=== PATIENT | female | born 1960 ===

== ENCOUNTER 2025-01-14 13:35 | Outpatient (REF) | payer MEDICARE, MEDICAID, SELFPAY ==
[2025-01-14 13:39] LABS: MANUAL DIFF FLAG NO
[2025-01-14 13:42] LABS: Basophils Percent Auto 0.4 % (0-2); Eosinophils Absolute Auto 0.1 X10*3/uL (0.0-0.4); Eosinophils Percent Auto 1.7 % (0-4); Hematocrit 27.3 % (37.0-47.0); Hemoglobin 8.7 g/dl (12.0-16.0); Imm Gran Abs Auto 0.03 X10*3/uL (0.00-0.03); Imm Gran Pct Auto 0.4 % (0.0-0.4); Lymphocytes Absolute Auto 2.9 X10*3/uL (1.2-4.9); Lymphocytes Percent Auto 36.8 % (20-40); Mean Corpuscular HGB Conc 31.9 g/dl (31.0-35.0); Mean Corpuscular Hemoglobin 26.9 pg (27.0-33.0); Mean Corpuscular Volume 84.3 fL (80.0-98.0); Mean Platelet Volume 8.4 fL (9.4-12.3); Monocytes Absolute Auto 0.8 X10*3/uL (0.1-1.2); Monocytes Percent Auto 9.7 % (2-11); Platelet Count 409 X10*3/uL (160-400); Red Blood Count 3.24 X10*6/uL (4.20-5.50); Red Cell Distribution Width 16.3 % (11.0-16.0); White Blood Count 7.7 X10*3/uL (4.8-10.8)
[2025-01-14 14:21] LABS: Alanine Aminotransferase 16 U/L (0-31); Albumin Level 2.5 g/dL (3.5-5.0); Alkaline Phosphatase 82 U/L (39-117); Anion Gap 12 (12-20); Aspartate Amino Transferase 42 U/L (5-31); Bilirubin Total 0.2 mg/dL (0.0-1.0); Blood Urea Nitrogen 11 mg/dL (9-16); C Reactive Protein 2.95 mg/dL (< or = 0.50); Calcium 8.7 mg/dL (8.4-10.2); Carbon Dioxide 27 mmol/L (22-29); Chloride 102 mmol/L (96-108); Erythrocyte Sedimentation Rate 105 MM/HR (0-20); Estimated Glomerular Filt Rate > 60; Glucose Random 212 mg/dL (60-115); Potassium 4.2 mmol/L (3.3-5.1); Sodium 137 mmol/L (135-145); Total Protein 6.1 g/dL (6.5-8.0)
--- OUTSIDE RECORDS SUMMARY | 2025-01-14 15:04 | XMS_ITS | Patient Health Record ---
[facility] Address [address] [place] [address] Care Team Providers Care Web Designer Name Role Phone Ammy Pisano Primary Care Provider Unavaila Michael Huynh Unavailable [phone] Allergies Allergen (clinical drug ingredient) Drug/Non Drug Allergy documented on EMR Reaction Allergy Type Onset Date Status metformin Metformin Unknown Drug Allergy Active terazosin Terazosin Unknown Drug Allergy Active Results Component Value Reference Range Notes HEMOGLOBIN A1C (GLYCOHEMOGLO BIN) Reviewed date:03/22/2024 02:34:57 PM Interpretation: Performing Lab: Notes/Report: HEMOGLOBIN A1C % (HH) 11 Reason For Referral No Information Medications Medication SIG (Take, Route, Frequency, Duration) Notes Start Date End Date Status levETIRAcetam 500 MG 1 tablet Orally noé ry 12 hrs for 30 day(s) Active Magnesium 400 MG as directed Orally Active Phenytoin Sodium Extended 100 MG 1 capsule Orally every 12 hrs for 30 day(s) Active DULoxetine HCl 60 MG 1 capsule Orally On ce a day for 30 day(s) Active Gabapentin 400 MG 1 capsule Orally Onc e a day for 30 day(s) Active Extra Depth Orthopedic Shoes, (1) Pair With (3) Pair Custom Heat Molded Multidensity Innersoles Dx: NIDDM/PVD(E11.51), Hammertoe Foot Deformity(M20.41,M20.42), Preulcerative Skin Lesion(s)(L85.1) Wear Daily for 365 days 03/22/2024 Active Ammonium Lactate 12 % 1 application Exte rnally to affected areas of dry skin to feet except for between the toes Twice a day for 30 days Active predniSONE Active HumaLOG Active oxyCODONE HCl 10 MG 1 tablet as needed O rally every 6 hrs Active Metoprolol Succinate 200 MG 1 capsule Orally Once a day for 30 day(s) Active Social History Tobacco Use: Social History Observation Description Date Details (start date - stop date) Never Smoker NA - NA Tobacco Use/Smoking Question Answer Notes Are you a: nonsmoker Alcohol Screen Question Answer Notes Did you have a drink containing alcohol in the p ast year? No Points 0 Interpretation Negative Tobacco use other than smoking: Question Answer Notes Are you an other tobacco user? No Problems Problem Type SNOMED Code ICD Code Onset Dates Problem Status W/U Status Risk Notes Problem Acquired hammer toe of right foot (06744398566227 05) Other hammer toe(s) (acquired), right foot (M20.41) Active confirmed Problem Acquired hammer toe of left foot (63704891290909 03) Other hammer toe(s) (acquired), left foot (M20.42) Active confirmed Problem Type 2 diabetes mellitus with peripheral angiopathy (370135961) Type 2 diabetes mellitus with diabetic peripheral angiopathy without gangrene (E11.51) Active confirmed Vital Signs Blood pressure diastolic 64 mm Hg 06/28/2024 Height 4vg31wc in 06/28/2024 Blood pressure systolic 162 mm Hg 06/28/2024 Weight 155 lbs 06/28/2024 BMI 31.3 kg/m2 06/28/2024 Procedures Procedure Date Ordered Date Performed Result Body Sit e 71760-IBQVNFS NAIL, 1-5 03/22/2024 N/A 32914-OYTX SKIN LESIONS, OVER 4 03/22/2024 N/A E5766-RPZDAPIO DYSTROPHIC NAILS ANY # 03/22/2024 N/A 31219-CRGIBQK NAIL, 1-5 06/28/2024 N/A 24132-PQXV SKIN LESIONS, OVER 4 06/28/2024 N/A E6928-UBMSHFGL DYSTROPHIC NAILS ANY # 06/28/2024 N/A Encounters Encounter Location Date Provider Diagnosis [facility] [address] [address] 03/22/2024 Michael Reece Type 2 diabetes mellitus with diabetic peripheral angiopathy without gangrene E11.51 ; Tinea unguium B35.1 ; Pain in right toe(s) M79.674 ; Pain in left toe(s) M79.675 ; Other hammer toe(s) (acquired), right foot M20.41 and Other hammer toe(s) (acquired), left foot M20.[address] [address] 06/28/2024 Michael Reece Type 2 diabetes mellitus with diabetic peripheral angiopathy without gangrene E11.51 ; Tinea unguium B35.1 ; Pain in right toe(s) M79.674 ; Pain in left toe(s) M79.675 and Xerosis of skin L85.[address] [address] 09/24/2024 Michael Reece [address] [address] 12/10/2024 Michael Reece Assessments Encounter Date Diagnosis (ICD Code) Assessment Notes Treatment Notes Treatment Clinical Notes Section Notes 03/22/2024 Tinea unguium (ICD-10 - B35.1) 03/22/2024 Type 2 diabetes mellitus with diabetic peripheral angiopathy without gangrene (ICD-10 - E11.51) 06/28/2024 Tinea unguium (ICD-10 - B35.1) 06/28/2024 Type 2 diabetes mellitus with diabetic peripheral angiopathy without gangrene (ICD-10 - E11.51) 03/22/2024 Pain in right toe(s) (ICD-10 - M79.674) 06/28/2024 Pain in right toe(s) (ICD-10 - M79.674) 06/28/2024 Pain in left toe(s) (ICD-10 - M79.675) 03/22/2024 Pain in left toe(s) (ICD-10 - M79.675) 03/22/2024 Other hammer toe(s) (acquired), right foot (ICD-10 - M20.41) Patient Educated with: DIABETIC FOOT CARE INSTRUCTIONS.p df (DIABETIC FOOT CARE INSTRUCTIONS.p df) 06/28/2024 Xerosis of skin (ICD-10 - L85.3) 03/22/2024 Other hammer toe(s) (acquired), left foot (ICD-10 - M20.42) 06/28/2024 Other Plan Of Treatment Pending Test Test Name Order Date 84283-XWLRZRV NAIL, 1-5 03/22/2024 99510-ZULHDND NAIL, 1-5 06/28/2024 36797-RYNW SKIN LESIONS, OVER 4 06/28/20 21729-SVKR SKIN LESIONS, OVER 4 03/22/20 24 P1663-XHSHXXXV DYSTROPHIC NAILS ANY # V4366-GBPCYWAA DYSTROPHIC NAILS ANY # Insurance Providers Payer Name Payer Address Payer Phone Subscriber Number Group Number Insured Name Patient Relationship to Insured Coverage Start Date Coverage End Date [facility] [address] [place] [phone] [id number] Annmarie Bay Self - patient is the insured Medical (General) History Medical History History ICD Code asthma Cataracts Depression Diabetic Epilepsy Headaches/Migraines Surgical History Surgery Date(Month/Year) Gall bladder removal carpal tunnel surgery colostomy
== END 2025-01-14 13:36 | disposition home or self-care (01) ==
LOC: HO.HVNA 13:35
PROVIDERS: Visit Provider Internal Medicine Infectious Disease
DX: M86.9 Osteomyelitis, unspecified (principal); Z79.2 Long term (current) use of antibiotics
CPT/HCPCS: 36415; 80053; 85025; 85652; 86140

== ENCOUNTER 2025-01-21 12:44 | Outpatient (REF) | payer MEDICARE, MEDICAID, SELFPAY ==
[2025-01-21 12:54] LABS: MANUAL DIFF FLAG NO
--- OUTSIDE RECORDS SUMMARY | 2025-01-21 13:09 | XMS_ITS ---
Continuity of Care Document (CCD) Created on: January 21, 2025 JulesJulián Annmarie R External Reference #: [id number] : [id number] Sex: Female Author Organization [facility] [address] [address] Phone [phone] Problems Active Problems Provider Date Insulin treated type 2 diabetes mellitus Tomas gusman M.D. Onset: 10/24/2023 Seizure disorder Tomas Brenner M.D. Onset: History of cerebrovascular accident Tomas martinez M.D. Onset: 08/02/2022 Retinopathy due to diabetes mellitus Tomas barnett M.D. Onset: 08/02/2022 Type 2 diabetes mellitus Tomas Brenner M.D. O nset: 08/02/2022 Social History Type Date Description Comments Sex Female Sex Unknown Lives With Son ETOH Use Denies alcohol use Tobacco Use Start: Unknown Patient has never smoked Allergies and adverse reactions Active Allergies Criticality Reaction Severity Comments Date Terazosin Unable to assess criticality 11/09/2022 Codeine Unable to assess criticality 11/09/2022 Trulicity Unable to assess criticality 11/09/2022 Medications Active Medications SIG Qnty Indications Order ing Provider Date Freestyle Beny 3/Sensor/Glucose Monitoring Qumkny1Klbifn Misc use as one sensor every 14 days (DX: E11.9) 6units E11.9 Rosanna Diaz M.D. 02/13/2024 Freestyle Beny 3/Zaleski/Glucose Monitoring Enhted7Btqfnx Device use as directed with sensors Dx: E11.9 1units E11.9 Rosanna Diaz M.D. 02/13/2024 Freestyle Beny 2/Sensor/Flash Glucose Monitoring Fcbndc0Izrazd Misc use as one sensor every 14 days (DX: E11.9) 6units E11.9 Rosanna Diaz M.D. 02/07/2024 Qrpkyokzm05sc Tablets take 1 tab by mouth every day 30tabs Rosanna Diaz M.D. 08/02/2022 Contour Next Blood Glucose TestStrips Use To Test Finger Stick Blood Sugar 3 (Three) Times A Day 100units Tomas Brenner M.D. 05/13/2022 Humulin R U-500 Bsbetyp769Jhak/ML Solution Pen-Inject Inject 60 Units Under The Skin Before Meals 3 (Three) Times A Day 12units Tomas Brenner M.D. 02/05/2022 Oxycodone HCL5mg Tablets Take 1 Tablet By Mouth Every 8 Hours For Severe Pain Unknown Atorvastatin Lxsyyvt01ht Tablets Unknown 00 Latanoprost0.005% Solution Aldo Patton [place] Choice Comfort Ez Pen [place] [id number] X 4 mm Misc Unknown [place] Choice Comfort Ez Pen [place] 11AT8DO41Q X 4 mm Misc Use as Needed as Directed Unknown Duloxetine KDF97xy Caps DR Part Take 2 caps once daily Unknown Phenytoin Sodium Jtcsngor545ps Capsules Take 1 hs Unknown Zqcsemnxpe39zg Tablets Unknown Metoprolol Succinate HT361kw Tablets ER 24HR Take 1 tab daily Unknown Mwdelmevsh395kh Capsules Take 3 capsules 3 times a day Unknown Oxybutynin Chloride ER5mg Tablets ER 24HR Unknown Albuterol Sulfate BYB879(90Base) mcg/Act Aerosol Inhale 2 puffs into the lungs every 6 (six) hours as needed for wheezing. Unknown Kcmjdhhbv516ns Tablets Take 1 tablet every 8 hours Unknown History Medications Freestyle Beny 2/Zaleski/Flash Glucose Monitoring Eboftn0Aacnfq Device use as directed with sensors 1untri E11Antoni Diaz M.D. 02/07/2024 - 02/13/2024 Vital Signs Date Vital Result Comment 10/16/2024 2:27pm BP Systolic 160 mmHg BP Diastolic 90 mmHg Heart Rate 92 /min Height 59 inches 4'11 Results Test Acquired Date Facility Test Result H/L Range Note Albumin/Creatinine Ratio, Random Urine 10/30/2024 [facility] Creatinine, Urine 122.1 mg/dL Not Estab. Albumin, Urine 14.4 ug/mL Not Estab. Alb/Creat Ratio 12 mg/gcreat 0-29 1 Lipid Panel 10/25/2024 [facility] Cholesterol, Total 168 mg/dL 100-199 Triglycerides 152 mg/dL High 0-149 HDL Cholesterol 31 mg/dL Low >39 VLDL Cholestero l Jose Juan 27 mg/dL 5-40 LDL Chol Calc (Nih) 110 mg/dL High 0-99 LDL Calc Comment: TNP Basic Metabolic Panel (8) 10/25/2024 [facility] Glucose 179 mg/dL High 70-99 BUN 24 mg/dL 8-27 Creatinine 0.96 mg/dL 0.57-1.0 0 eGFR 66 mL/min/1. 73 >59 BUN/Creatinine Ratio 25 12-28 Sodium 138 mmol/L 134-144 Potassium 4.3 mmol/L 3.5-5.2 Chloride 100 mmol/L 96-106 Carbon Dioxide, Total 26 mmol/L 20-29 Calcium 9.9 mg/dL 8.7-10.3 Hemoglobin A1c 10/16/2024 Inhouse Hemoglobin A1c 11.0% Glucose Fingerstick 10/16/2024 Inhouse Glucose Fingerstick 236 Hemoglobin A1c 02/13/2024 Inhouse Hemoglobin A1c 13.3% Glucose Fingerstick 02/13/2024 Inhouse Glucose Fingerstick 151 Jorge-65 Autoantibody 10/26/2023 [facility] Jorge-65 Autoantibody <5.0 U/mL 0.0-5.0 C-Peptide, Serum 10/26/2023 [facility] C-Peptide, Serum 0.9 ng/mL Low 1.1-4.4 2 Glucose 10/26/2023 [facility] Glucose 96 mg/dL 70-99 C-Peptide, Serum 10/25/2023 [facility] C-Peptide, Serum <pending> Glucose, Serum 10/25/2023 [facility] Glucose, Serum <pending> Hemoglobin A1c 10/24/2023 Inhouse Hemoglobin A1c 11.7% Glucose Fingerstick 10/24/2023 Inhouse Glucose Fingerstick 227 Gad65 Autoantibodies 11/11/2022 [facility] Gad65 Autoantibodies <pending> C-Peptide 11/11/2022 [facility] C-Peptide <pending> Glucose 11/11/2022 [facility] Glucose <pending> Hemoglobin A1c 11/09/2022 Inhouse Hemoglobin A1c 12.0% Glucose Fingerstick 11/09/2022 Inhouse Glucose Fingerstick 401 1 Normal: 0 - 29 Moderately increased: 30 - 300 Severely increased: >300 2 C-Peptide reference interval is for fasting patients. Procedures Date Code Description Status 12/18/2024 NSHOWOFF No Show Office Visit Complet ed 10/16/2024 00324 Glucose Monitoring Interpeta tion And Report Completed 03/19/2024 NSHOWOFF No Show Office Visit Complet ed 01/25/2024 NSHOWOFF No Show Office Visit Complet ed 02/09/2023 NSHOWOFF No Show Office Visit Complet ed Medical Devices Description No Information Available Encounters Type Date Location Provider Dx Diagnosis Office Visit 10/16/2024 2:45p Main Office VICKEY Trejo E11.8 Type 2 diabet es mellitus with unspecified complications I73.9 Peripheral vascular disease, unspecified Z79.4 terminologist (current) use of insulin Z86.73 Prsnl hx of TIA (TIA ), and cereb infrc w/o resid deficits E11.319 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 E11.621 Type 2 diabetes gagan itus with foot ulcer Assessments Date Code Description Provider 10/16/2024 E11.8 Type 2 diabetes mellitus with unspecified complications VICKEY Trejo 10/16/2024 I73.9 Peripheral vascular disease, unspecified VICKEY Trejo 10/16/2024 Z79.4 penitentiary (current) use of i nsulin VICKEY Trejo 10/16/2024 Z86.73 History of cerebrovascular a ccident VICKEY Trejo 10/16/2024 E11.319 Retinopathy due to diabetes mellitus VICKEY Trejo 10/16/2024 E11.621 Type 2 diabetes mellitus wit h foot ulcer VICKEY Trejo Plan of Treatment No Information Available Functional Status Description No Information Available Mental Status Description No Information Available Referrals Description No Information Available
--- OUTSIDE RECORDS SUMMARY | 2025-01-21 13:09 | XMS_ITS | Patient Health Record ---
Author Organization [facility] Address [address] [place] [address] Care Team Providers Care Oil Well Perforator Operator Name Role Phone Ammy Pisano Primary Care Provider Unavaila Michael Huynh Unavailable [phone] Allergies Allergen (clinical drug ingredient) Drug/Non Drug [...] ry 12 hrs; Duration: 30 day(s) Active Magnesium 400 MG [...] Wear Daily; Duration: 365 days 03/22/2024 Active Ammonium Lactate 12 [...] Once a day; Duration: 30 day(s) Active Social History Tobacco Use: [...] Problem Acquired hammer toe of right foot (22554949887511 05) Other hammer toe(s) (acquired), right foot (M20.41) Active confirmed Problem Acquired hammer toe of left foot (50892437327181 03) Other hammer toe(s) (acquired), left foot (M20.42) Active confirmed Problem Type 2 diabetes mellitus with peripheral angiopathy (791679445) Type 2 diabetes mellitus with diabetic peripheral angiopathy without gangrene (E11.51) Active confirmed Vital Signs Blood pressure diastolic 64 mm Hg 06/28/2024 Height 0yc50zd in 06/28/2024 Blood pressure systolic 162 mm Hg 06/28/2024 Weight 155 lbs 06/28/2024 BMI 31.3 kg/m2 06/28/2024 Procedures Procedure Date Ordered Date Performed Result Body Sit e 20337-RKRHRHH NAIL, 1-5 03/22/2024 N/A 71427-TZYC SKIN LESIONS, OVER 4 03/22/2024 N/A R1458-ZVQLQOAB DYSTROPHIC NAILS ANY # 03/22/2024 N/A 52388-OCVGMCW NAIL, 1-5 06/28/2024 N/A 74127-RBNF SKIN LESIONS, OVER 4 06/28/2024 N/A V3759-CWILKNJN DYSTROPHIC NAILS ANY # 06/28/2024 N/A Encounters Encounter Location Date Provider Diagnosis [facility] [address] [address] 03/22/2024 Michael Reece Type 2 diabetes mellitus with diabetic peripheral angiopathy without gangrene E11.51 ; Tinea unguium B35.1 ; Pain in right toe(s) M79.674 ; Pain in left toe(s) M79.675 ; Other hammer toe(s) (acquired), right foot M20.41 and Other hammer toe(s) (acquired), left foot M20.[address] [address] 06/28/2024 Michael Reece Type 2 diabetes mellitus with diabetic peripheral angiopathy without gangrene E11.51 ; Tinea unguium B35.1 ; Pain in right toe(s) M79.674 ; Pain in left toe(s) M79.675 and Xerosis of skin L85.[address] [address] 09/24/2024 Michael Reece [address] [address] 12/10/2024 Michael Reece Assessments Encounter Date Diagnosis [...] Treatment Pending Test Test Name Order Date 47862-QYJZNYM NAIL, 1-5 03/22/2024 28876-BTZOQID NAIL, 1-5 06/28/2024 11125-SSIM SKIN LESIONS, OVER 4 06/28/20 24 29371-ZGNP SKIN LESIONS, OVER 4 03/22/20 24 L7121-XCFYCNQH DYSTROPHIC NAILS ANY # I4180-DMTYOBIJ DYSTROPHIC NAILS ANY # Insurance Providers Payer Name Payer Address Payer Phone Subscriber Number Group Number Insured Name Patient Relationship to Insured Coverage Start Date Coverage End Date [facility] [address] [address] [place] [phone] [id number] Annmarie Bay Self - patient is the insured Medical (General) History Medical History History ICD Code asthma Cataracts Depression Diabetic Epilepsy Headaches/Migraines Surgical History Surgery Date(Month/Year) Gall bladder removal carpal tunnel surgery colostomy
--- OUTSIDE RECORDS SUMMARY | 2025-01-21 13:09 | XMS_ITS | Clinical Summary ---
Author Organization [facility] Address [address] [place] [address] Phone Care Team Providers Care Casino Floorperson Name Role Phone Harsha Escalante MD Primary Care Provider [phone] Allergies Active Allergy Reactions Criticality Noted Date Comments Codeine Anxiety 05/29/2024 Metformin Headache 05/29/2024 Terazosin Nausea And Vomiting 05/29/2024 Medications amLODIPine (NORVASC) 10 mg tablet Take 1 tablet (10 mg total) by mouth 1 (one) time each day. Active DULoxetine (CYMBALTA) [address] capsule Take 1 capsule (60 mg total) by mouth 1 (one) time each day. Active Jardiance 10 mg tablet Take 1 tablet (10 mg total) by mouth 1 (one) time each day. Active gabapentin (NEURONTIN) 400 mg capsule Take 3 capsules (1,200 mg total) by mouth 3 (three) times a day. Active ibuprofen (ADVIL,MOTRIN) 400 mg tablet Take 1 tablet (400 mg total) by mouth every 8 (eight) hours if needed for mild pain. Active HumuLIN R U-500, Conc, Kwikpen 500 unit/mL (3 mL) CONCENTRATED injection pen Inject 40 Units under the skin 3 (three) times a day before meals. Active levETIRAcetam (KEPPRA) 500 mg tablet Take 1 tablet (500 mg total) by mouth 2 (two) times a day. Active metoprolol succinate (TOPROL-XL) 200 mg 24 hr tablet Take 1 tablet (200 mg total) by mouth 1 (one) time each day. Active oxyCODONE (ROXICODONE) 10 mg immediate release tablet Take 1 tablet (10 mg total) by mouth every 8 (eight) hours if needed. Max Daily Amount: 30 mg Active atorvastatin (LIPITOR) 10 mg tablet Take 1 tablet (10 mg total) by mouth at bedtime. 30 each Active Active Problems Problem Noted Date Diagnosed Date Cellulitis of heel, left 10/08/2024 Diabetic foot infection ([facility] V24, [facility] V2 8) 10/07/2024 Surgical History Surgery Date Site/Laterality Comments CARPAL TUNNEL RELEASE 1994, 1995, 1996 PROCEDURE: HISTORICAL CARPAL TUNNEL REL; COMMENT: 3 surg on R, 1 on L OTHER SURGICAL HISTORY PROCEDURE: [place] LAPAROSCOPY W/LYSIS OF ADHESIONS OTHER SURGICAL HISTORY 1995 PROCEDURE: KS TOTAL ABDOMINAL HYSTERECT W/WO RMVL TUBE OVARY; COMMENT: open OOPHORECTOMY 2003, 2004 PROCEDURE: KS OOPHORECTOMY PARTIAL/TOTAL UNI/BI; COMMENT: R then L KIDNEY STONE SURGERY PROCEDURE: KS NEPHROLITHOTOMY REMOVAL CALCULUS CARDIAC CATHETERIZATION PROCEDURE: HISTORICAL CARDIAC CATH OVARIAN CYST REMOVAL 2004 PROCEDURE: KS OVARIAN CYSTECTOMY UNI/BI CHOLECYSTECTOMY 2004 PROCEDURE: [place] CHOLECYSTECTOMY HERNIA REPAIR 2005 PROCEDURE: HISTORICAL HERNIA REPAIR/UMB HERNIA REPAIR 2006 PROCEDURE: HISTORICAL HERNIA REPAIR/UMB HERNIA REPAIR 2007 PROCEDURE: HISTORICAL HERNIA REPAIR/DAVID OTHER SURGICAL HISTORY 2007 PROCEDURE: HISTORICAL PANNICULECTOMY HYSTERECTOMY 1997 PROCEDURE: HISTORICAL HYSTERECTOMY Medical History Medical History Date Comments Zarina rash of groin DX:Zarina rash of groin Carpal tunnel syndrome on both sides DX:Carpal tunnel syndrome on both sides Stroke ([facility]/HCC V24, [facility] V28) DX:Stroke (HCC) Spinal stenosis DX:Spinal stenos is Shingles DX:Shingles Sepsis due to Zarina (CMS/H CC V24, CMS/HCC V28) DX:Sepsis due to Zarina (HC C) Diabetes mellitus ([facility]/HCC V 24, [facility] V28) DX:Diabetes mellitus (HCC) Seizure disorder (CMS/HCC V24, [facility] V28) DX:Seizure disorder (HCC) Hypertension DX:Hypertension Osteoarthritis DX:Osteoarthriti s Family History Medical History Relation Name Comments Diabetes Brother 1 Colon cancer Brother 2 Asthma Father Heart attack Father Hypertension Father Prostate cancer Father Asthma Mother Breast cancer Mother Diabetes Mother Hypertension Mother Relation Name Status Comments Brother 1 Brother 2 Brother 3 Alive Father Alive Mother Alive Sister 1 Alive Sister 2 Alive Social History Tobacco Use Types Packs/Day Years Used Date Smoking Tobacco: Never Smokeless Tobacco: Never Alcohol Use Standard Drinks/Week Comments No 0 (1 standard drink = 0.6 oz pur e alcohol) Interpersonal Safety Answer Date Record ed Physical Abuse 10/07/2024 Verbal Abuse 10/07/2024 Comments Unknown Sex and Gender Information Value Date Recorded Sex Assigned at Not on file Legal Sex Female 1:00 AM EST Gender Identity Not on file Sexual Orientation Not on file Obstetrics History Last Filed Vital Signs Vital Sign Reading Time Taken Comments Blood Pressure 149/70 10/09/2024 8:19 AM EDT Pulse 61 10/09/2024 8:19 AM EDT Temperature 36.4 C (97.5 F) 10/09/2024 8:19 AM EDT Respiratory Rate 14 10/09/2024 8:19 AM EDT Oxygen Saturation 100% 10/09/2024 8:19 AM EDT Inhaled Oxygen Concentration - - Weight 69.4 kg (153 lb) 10/07/2024 11:03 AM EDT Height 147.3 cm (4' 10 ) 10/07/2024 11:03 AM EDT Body Mass Index 31.98 10/07/2024 11:03 AM EDT Plan of Treatment Health Maintenance Due Date Last Done Comments Diabetes: Annual Foot Exam 1969 Diabetes: Annual Retina Eye Exam 1969 Hepatitis A Vaccines (1 of 2 - Risk 2-dose series) 1978 Cervical Cancer Screening: Pap Smear 1980 Hepatitis B Vaccines (1 of 3 - Risk 3-dose series) 2019 RSV Immunization Adult Patients (1 - Risk 60-74 years 1-dose series) 2019 Colorectal Cancer Screening: Colonoscopy 06/27/2022 Depression Screening 06/27/2022 Hepatitis C Screening 06/27/2022 Medicare Annual Wellness Visit 06/27/2022 Osteoporosis Screening (Bone Density Screening) 06/27/2022 Social Influencers of Health Screening 06/27/2022 Diabetes: Annual Urine Albumin-Creatinine Ratio (uACR) 07/07/2022 03/17/2020, 08/24/2018, 09/22/2017 COVID-19 Vaccine ( season) 2024 09/15/2021, 11/19/2020, 10/25/2020 Breast Cancer Screening 05/11/2024 05/11/2022 Diabetes: Blood Sugar Control Test (HGBA1C) 04/09/2025 10/07/2024 Diabetes: Annual GFR (Glomerular Filtration Rate) 10/09/2025 10/09/2024, 10/08/2024, 10/07/2024, Additional history exists Falls Risk Assessment 10/09/2025 10/09/2024 Hypertension/CHF/CAD Annual BMP Blood Test 10/09/2025 10/09/2024, 10/08/2024, 10/07/2024, Additional history exists DTaP,Tdap,and Td Vaccines (4 - Td or Tdap) 12/28/2026 12/28/2016, 11/08/2013, 07/04/2013 Cholesterol Screening (Lipid Panel) 10/09/2029 10/09/2024, 05/26/2024 Pneumococcal Vaccine: 50+ Years Completed 09/16/2023, 04/25/2018, 11/12/2014, Additional history exists Pneumococcal Vaccine: Pediatrics (0 to 5 Years) and At-Risk Patients (6 to 64 Years) Completed 09/16/2023, 04/25/2018, 11/12/2014, Additional history exists Zoster Vaccines Completed 09/30/2023, 03/25, 12/13/2017, Additional history exists Influenza Vaccine Completed 03/23/2024, , 04/27/2022, Additional history exists HIB Vaccines Aged Out No longer eligi ble based on patient's age to complete this topic HPV Vaccines Aged Out No longer eligi ble based on patient's age to complete this topic IPV Vaccines Aged Out No longer eligi ble based on patient's age to complete this topic MMR Vaccines Aged Out No longer eligi ble based on patient's age to complete this topic Meningococcal ACWY Vaccine Aged Out N o longer eligible based on patient's age to complete this topic Meningococcal B Vaccine Aged Out No l onger eligible based on patient's age to complete this topic RSV Immunization Patients Under 20 months Aged Out No longer eligible based on patient's age to complete this topic Varicella Vaccines Aged Out No longer eligible based on patient's age to complete this topic Procedures Procedure Name Priority Date/Time Associated Diagnosis Comments BASIC METABOLIC PANEL Routine 10/09/2024 6:43 AM EDT LIPID PANEL WITH REFLEX TO DIRECT LDL Add-On 10/09/2024 6:43 AM EDT HEMOGLOBIN A1C Add-On 10/07/2024 12:26 PM EDT from Last 3 Months or Most Recently Relevant to Health Maintenance Results * (ABNORMAL) Lipid panel with reflex to direct LDL (10/09/2024 6:43 AM EDT) Cholesterol 157 0 - 200 mg/dL LAB CHEMISTRY METHOD 10/09/2024 9:48 AM EDT [facility] Triglycerides 180(H) 0 - 150 mg/dL LAB CHEMISTRY METHOD 10/09/2024 9:48 AM T [facility] HDL 29(L) >=40 mg/dL LAB CHEMISTRY METHOD 10/09/2024 9:48 AM T [facility] LDL Calculated 92 0 - 100 mg/dL LAB CHEMISTRY METHOD 10/09/2024 9:48 AM [facility] VLDL Cholesterol Jose Juan 36 mg/dL LAB CHEMISTRY METHOD 10/09/2024 9:48 AM [facility] Non HDL Chol. (LDL+VLDL) 128 <145 mg/dL LAB CHEMISTRY METHOD 10/09/2024 9:48 AM EDT [facility] Chol/HDL Ratio 5.4(H) 0.0 - 4.4 LAB CHEMISTRY METHOD 10/09/2024 9:48 AM [facility] Blood Venous blood specimen / Unknown Venipuncture / Unknown 10/09/2024 6:43 AM EDT 10/09/2024 7:06 AM EDT Rosanna HURD LAB BLOOD ORDERABLES Final Result [facility] [address] [place] [address], * (ABNORMAL) Basic metabolic panel (10/09/2024 6:43 AM EDT) Sodium 135 133 - 145 mmol/L LAB CHEMISTRY METHOD 10/09/2024 7:48 AM T [facility] Potassium 4.3 3.5 - 5.5 mmol/L LAB CHEMISTRY METHOD 10/09/2024 7:48 AM [facility] Chloride 104 96 - 110 mmol/L LAB CHEMISTRY METHOD 10/09/2024 7:48 AM [facility] CO2 27 21 - 32 mmol/L LAB CHEMISTRY METHOD 10/09/2024 7:48 AM [facility] Anion Gap 4 3 - 11 LAB CHEMISTRY METHOD 10/09/2024 7:48 AM [facility] Glucose 260(H) 70 - 100 mg/dL LAB CHEMISTRY METHOD 10/09/2024 7:48 AM [facility] BUN 17 5 - 25 mg/dL LAB CHEMISTRY METHOD 10/09/2024 7:48 AM [facility] Creatinine 0.89 0.50 - 1.10 mg/dL LAB CHEMISTRY METHOD 10/09/2024 7:48 AM [facility] eGFR 72 >=60 mL/min/1. 73m2 LAB CHEMISTRY METHOD 10/09/2024 7:48 AM [facility] Comment:Calculation based on the Chronic Kidney Disease Epidemiology Collaboration (CKD-EPI) equation refit without adjustment for race. BUN/Creatinine Ratio 19.1 LAB CHEMISTRY METHOD 10/09/2024 7:48 AM [facility] Calcium 9.1 8.5 - 10.5 mg/dL LAB CHEMISTRY METHOD 10/09/2024 7:48 AM [facility] Blood Venous blood specimen / Unknown Venipuncture / Unknown 10/09/2024 6:43 AM EDT 10/09/2024 7:06 AM EDT Rosanna HURD LAB BLOOD ORDERABLES Final Result Performing Organization Address [facility]/ZIP Co de Phone Number [facility] [address] [place] [address], [place] [phone] * (ABNORMAL) Hemoglobin A1c (10/07/2024 12:26 PM EDT) Hemoglobin A1C 12.2(H) <6.5 % LAB CHEMISTRY METHOD 10/08/2024 12:34 PM EDT [facility] Mean Bld Glu Estim. 303 mg/dL LAB CHEMISTRY METHOD 10/08/2024 12:34 PM EDT [facility] Blood Venous blood specimen / Unknown Venipuncture / Unknown 10/07/2024 12:26 PM EDT 10/07/2024 12:48 PM EDT Astrid Haddad NP LAB BLOOD ORDERABLES Fin al Result Performing Organization Address City/[facility]/ZIP Co de Phone Number [facility] [address] [place] [address], [place] [phone] from Last 3 Months or Most Recently Relevant to Health Maintenance Insurance MEDICAID - [place] [employer] MEDICARE Advance Directives Documents on File Type Date Recorded 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 Do not modify or discontinue any currently active code status orders. * Full Code - Default Date Activated Date Inactivated Comments 10/07/2024 2:29 PM 10/07/2024 5:50 PM This is orde r is used when code status has not been discussed with the patient, or code status is otherwise unknown/unconfirmed To update the patient's code status, place a code status order. Do not modify or discontinue any currently active code status orders. Care Teams Casino Floorperson Relationship Specialty Start Date End Date Harsha Escalante MD [address] [place], [place] PCP - General Neurology 03/17/20
--- OUTSIDE RECORDS SUMMARY | 2025-01-21 13:10 | XMS_ITS | Data Portability ---
Author Organization [place] - [facility], [facility] Address [address] [place] [address] Assessment No assessment recorded. Plan of Treatment Reminders Order Date Submit Date Provider Last Modified By Organization Details Last Modified Time Details Appointments None recorded. Lab None recorded. Referral None recorded. Procedures None recorded. Surgeries None recorded. Imaging XR, shoulder, 2 or more view - new [facility] left shoulder and neck pain room 208 2023 024 [facility] Office, [address], [address], [address], 4 10:19:52 XR, cervical spine, 1 view - new [facility] left shoulder and neck pain room 208 2023 024 [facility] Office, [address], [address], [place], [address], 4 10:19:52 Medication Orders None recorded. Patient TargetsNo targets recorded. Patient InstructionsNo instructions recorded. Reason for Referral None Reported. Results Created Date Observation Date Name Description Value Unit Range Abnormal Flag Note LastModifiedBy Organization Detail LastModifiedTime 06/08/20 24 06/08/2024 XR, cervi gunnar spine , 1 view [email or web address]:/ [email or web address] ?Encry pted=s hAaTro YD8dLq bEUv6g %2BXZw aYqtaq 0bqfl% 2Fg9IQ a4ajBk vP9nXo QUaueC m3YtLR FvZlgJ JJ8mAn HZtai3 3e3895 AC0Kqa X2NUqS vKiQtr MwF INTERFACE [facility] [address], [place], [address], 06/08/2024 14:44:07 06/08/20 24 06/08/2024 XR, cervi gunnar spine , 1 view [email or web address] ?Encry pted=s hAaTro YD8dLq bEUv6g %2BXZw aYqtaq 0bqfl% 2Fg9IQ a4ajBk vP9nXo QUaueC m3YtLR FvZlgJ JJ8mAn HZtai3 3m6276 AC0Kqa X2NUqS vKiQtr MwF INTERFACE [facility] [address], [place], [address], 06/08/2024 14:44:09 06/08/20 24 06/08/2024 XR, shoul maira, 2 or more view [email or web address] ?Encry pted=s hAaTro YD8dLq bEUv6g %2BXZw aYqtaq 0bqfl% 2Fg9IQ a4ajBk vP9nXo QUaueC m3YtLR FvZl JJ8Albany HZtai3 9a5621 AC0Kqa X2NUqW kKiQtr MwF INTERFACE [facility] [address], [place], [address], 06/08/2024 14:51:44 06/08/20 24 06/08/2024 XR, shoul maira, 2 or more view [email or web address] ?Encry pted=s hAaTro YD8dLq bEUv6g %2BXZw aYqtaq 0bqfl% 2Fg9IQ a4ajBk vP9nXo QUaueC m3YtLR FvZlgJ JJ8mAn HZtai3 3q2304 AC0Kqa X2NUqW kKiQtr MwF INTERFACE [facility] [address], [place], [address], 06/08/2024 14:51:46 Result Notes Documentation Provider Name and Address Organization Details Recorded Time Xr, Cervical Spine, 1 View : [email or web address] Encrypted=znUiHprFM1bXzuJ Uv6g%8AFDlxBmqpn6gkkv%2Fg 4JOp9fbNndL8kPaNBonpWf7Sq MAOrSngDDR3yTuHVnvk64n147 3AI7DpmJ7TOcWeXoMilDyF Not Available [facility] 06/08/2024 14:44: 08 Xr, Cervical Spine, 1 View : [email or web address] Encrypted=mySlZrrPJ9jCezD Uv6g%0CLEmaDixqh2wueg%2Fg 0SBp7sfTswU2bPwGIzbxPq2Xy LXApXviQPZ1oBsHQvjl22k587 7EH8UtjF6YHaHvYkIncYtH Not Available [facility] 06/08/2024 14:44: 10 Xr, Shoulder, 2 Or More View : [email or web address]? Encrypted=usKcSevDG1vRjaA Uv6g%7PIRpaMvhgd5ecqe%2Fg 7YHo5kpXeyZ3gGzDTtjiKd0Qa GOTwVetOAU6oDtDFfgl52x245 9JV2JdjT0WRuEhIzIamXrK Not Available [facility] 06/08/2024 14:51: 44 Xr, Shoulder, 2 Or More View : [email or web address] Encrypted=xbTlShoBQ6gBqnY Uv6g%0UFRdiAfjpu6mhdb%2Fg 5IGk2ktTldO7kJdHGvphFn3To YZOrSqqSXX0nQjZKeyg52f672 3RR5JxwY8BAdTcSqDqgXaC Not Available [facility] 06/08/2024 14:51: 46 Problems Name Problem SNOMED Code Status Onset Date Resolution Date Notes Provider Name and Address Organization Details Recorded Time Osteoarthri tis of knee 574222081 Active 2023 Astrid Maldonadoa, CREW DIRECTOR [address], [place], [address], [facility] 4 08:58:01 Pain of left shoulder joint 1733552588819 9109 Active 2023 Madhavi Leal i, PA-C [address], [place], [address], [facility] 4 12:52:45 Neck pain 36913434 Active 2023 RAVI L'HEUREUSreedhar [facility] 4 14:30:10 Problem Notes None recorded. Procedures Surgical History Date Name Laterality Status Provider Name and Address Organization Details Recorded Time 4 Knee Kenalog 40 1cc Injection, Bilateral completed Astrid Drenga, CREW DIRECTOR [address], [place], [address], [facility] 05/29/2024 09:26:34 4 Knee Kenalog 40 1cc Injection, Bilateral completed Astrid Drenga, CREW DIRECTOR [address], [place], [address], [facility] 01/30/2024 08:57:53 Imaging Results None recorded. Procedure Notes None recorded. Medical Equipment None Reported. Allergies Allergen ID Allergen Name Allergen Category Reaction Reaction Severity Criticality Documentation Date Start Date Code Code System Note Provider Name and Address Organization Details Recorded Time 05594 metformin hydrochlo ride medicatio n Not available Not available Not available 09/26/20232020 48823 3 RxNorm Not Available [facility] 4 11:09:28 69305 codeine medicatio n Not available Not available Not available 09/26/20232020 2670 RxNorm Not Available [facility] 4 11:09:28 Medications Name Sig Start Date Stop Date Status Note LastModified by Organization Details LastModified Time doxycycline hyclate 100 mg capsule Take 1 capsule (100 mg total) by mouth 2 (two) times a day for 10 days. Take with at least 8 ounces (large glass) of water, do not lie down for 30 minutes after active Not Available Not Available No t Available levetiraceta m 500 mg tablet TAKE 1 TABLET BY MOUTH two (2) times a day active Not Available Not Available No t Available metoprolol succinate ER 200 mg tablet,exten ded release 24 hr TAKE ONE TABLET (200mg total) BY MOUTH DAILY active Not Available Not Available Not Available prednisone 20 mg tablet Take 2 tablets (40 mg total) by mouth daily with breakfast. active Not Available Not Available N ot Available gabapentin 400 mg capsule TAKE THREE CAPSULES BY MOUTH 3 (THREE) TIMES A DAY active Not Available Not Available Not Available phenytoin sodium extended 100 mg capsule TAKE TWO CAPSULES BY MOUTH EVERY NIGHT AT BEDTIME active Not Available Not Available No t Available amlodipine 5 mg tablet TAKE 1 TABLET BY MOUTH ONCE DAILY active Not Available Not Available No t Available ketorolac 0.5 % eye drops INSTILL ONE DROP IN THE LEFT EYE 3 (THREE) TIMES A DAY X 3 WEEKS following cataract surgery active Not Available Not Available No t Available amlodipine 10 mg tablet TAKE 1 TABLET BY MOUTH ONCE DAILY active Not Available Not Available No t Available triamcinolon e acetonide 0.1 % topical ointment active Not Available Not Available Not Available ibuprofen 400 mg tablet active Not Available Not Available Not Available aspirin 81 mg chewable tablet Take 1 tablet (81 mg total) by mouth daily. active Not Available Not Available No t Available ammonium lactate 12 % topical cream APPLY TO THE AFFECTED AREA OF DRY SKIN ON FEET EXCEPT FOR BETWEEN THE TOES two (2) times a day active Not Available Not Available Not Available Ventolin HFA 90 mcg/actuatio n aerosol inhaler active Not Available Not Available Not Available duloxetine 30 mg capsule,elisa yed release Take 1 capsule (30 mg total) by mouth daily. active Not Available Not Available No t Available duloxetine 60 mg capsule,elisa yed release TAKE 1 CAPSULE (60 MG) BY MOUTH ONCE DAILY active Not Available Not Available No t Available BD Ultra-Fine Mini Pen Needle 31 gauge x 3/16 USE TO INJECT INSULIN 3 (THREE) TIMES A DAY NEEDED active Not Available Not Available No t Available levetiraceta m levETIRAcet am 500MG Tablet 2021 active Statu s: 'Curr ent'; Not Available Not Available Not Available oxycodone 10 mg tablet TAKE 1 TABLET BY MOUTH EVERY 8 HOURS NEEDED active Not Available Not Available No t Available oxycodone HCl-oxycodon e-ASA oxyCODONE HCl 5MG Tablet 2020 active Statu s: 'Curr ent'; Not Available Not Available Not Available Jardiance 10 mg tablet TAKE 1 TABLET BY MOUTH ONCE DAILY active Not Available Not Available No t Available Humulin R U-500 (Conc) Insulin Kwikpen 500 unit/mL (3 mL) subcutaneous Inject 40 Units under the skin 3 (three) times a day. Patient takes 50 units if glucose >400 active Not Available Not Available No t Available Ubrelvy 100 mg tablet take 1 tablet (100 mg) by oral route once may repeat dose once after 2 hours if needed, not to exceed 200 mg in 24 hours for 30 days active Not Available Not Available Not Available FreeStyle Beny 3 Sensor device use as one sensor every 14 days (DX E11.9) active Not Available Not Available No t Available FreeStyle Beny 3 [place] active Not Available Not Available Not Available Vitals Date Recorded Body height Body mass index (BMI) Body weight Provider Name and Address Organization Details Last Updated DateTime 01/30/2024 147.32 cm 34.5 kg/m2 40201.74 g CARA BRAR [facility] 01/30/2024 08:36:06 Date Recorded Body height Body mass index (BMI) Body weight Provider Name and Address Organization Details Last Updated DateTime 06/01/2024 147.32 cm 34.5 kg/m2 20196.74 g CARA BRAR [facility] 06/01/2024 16:06:15 Date Recorded Body height Body mass index (BMI) Body weight Provider Name and Address Organization Details Last Updated DateTime 06/08/2024 147.32 cm 34.5 kg/m2 97537.74 g RAVI PATINO [facility] 06/08/2024 14:28:55 Social History Question Answer Notes LastModified by Organizat ion Details LastModified Time Tobacco Smoking Status Never Smoker RAVI woodward [facility] 06/08/2024 14:29:34 What Is Your Relationship Status? [email or web address] Information not available 06/08/2024 Sex: Unknown Functional Status Question Answer Note LastModified by Organizat ion Details LastModified Time Do you use any illicit or recreational drugs? No Information not available 06/08/2024 Do you or have you ever used any other forms of tobacco or nicotine? No Information not available 06/08/2024 What is your level of alcohol consumption? None Information not available 06/08/2024 Mental Status None recorded. Family History Nothing Reported. Medical History Condition Response Diabetes Y Arthritis Y Seizures/Epilepsy Y Headaches Y Stroke Y Hypertension Y Gynecological HistoryNo gynecological history recorded. Obstetrics History GPAL:G 0 P 0 0 0 0 Past Encounters Encounter ID Performer Location Encounter Start Date Encounter Closed Date Diagnosis/Indication Diagnosis SNOMED-CT Code Diagnosis ICD10 Code Diagnosis Note [id number] Astrid White CNP [facility] [address] [place] [address] 01/30/2024 08:30:21 02/13/2024 15:17:30 Osteoarthritis of knee 766823428 M17.9 [id number] Astrid White CNP [facility] [address] [place] [address] 06/01/2024 15:59:41 06/19/2024 15:35:32 [id number] KAIT Rodrig[facility] [address] [place] [address] 06/08/2024 14:24:32 06/28/2024 10:19:52 Pain of left shoulder joint 3454274589 2302244 M25.512 Neck pain 25562999 M54.2 Health Concerns Section Related Observation LastModified by Organization Detai ls LastModified Time None Recorded Concern Status LastModified by Organization Details LastModified Time None Recorded Advance Directives Directive None Recorded Payers Insurance Date Sequence Insurance Name Policy Number Policy Pena Covered Member ID Pena Member ID Guarantor Name 09/03/2024 2 [place]™[facility] Annmarie davis [id number] Annmarie Jules 09/03/2024 1 [employer] (MEDICARE REPLACEMENT/A DVANTAGE - PPO) [id number] Annmarie Beasley susan [id number] Annmarie Jules 01/30/2024 1 [place] B[place] [facility] Annmarie Jules [id number] Annmarie Jules Notes Date Note Type Note Provider Name and Address Organization Details Recorded Time 01/30/2024 text/html Annmarie is a 63-year-old female here today for follow-up of her bilateral knees she had previous cortisone injection which gave her relief until recently. She presents today for further evaluation. Astrid White, JOSE [address], [place], [address], [facility] 01/30/2024 08:58:19 06/01/2024 text/html Annmarie is a 63-year-old female here today for follow-up of her bilateral knees she had previous cortisone injection which gave her relief until recently. She presents today for further evaluation. Astrid White CNP [address], [place], [address], [facility] 06/01/2024 16:39:11 06/08/2024 text/html I am seeing the patient today under the supervision of Dr. Alas who was available but did not see the patient. HPI: 64-year-old female patient presents today for left shoulder pain. Of note, she does have a history of a stroke with left-sided deficits. She does not move her left arm on her own or uses for transfers. She reports a fall 05/31/24 where she fell backwards. She reports pain when laying on her left side at night. She does report neck pain and numbness down the left upper extremity but notes this has been an ongoing issue. Localizes pain to the lateral bracchium of the shoulder. She reports last year she believes she suffered a fracture to her shoulder, but is unsure and was not seen in our office. Past family, medical, social history and review of systems has been reviewed, updated and is located in the patient's chart. X-RAYS: 4v x-rays of the Left shoulder and 1 view cervical spine ordered, obtained and reviewed at [facility] today. Left shoulder demonstrates there seems to be evidence of an impacted femoral head fracture, no displacement. No dislocation.Cervica l spine demonstrates mild to moderate degenerative changes C4-C7. IMPRESSION: Left shoulder - nondisplaced femoral head impaction fracture, rotator cuff tendinitis PLAN: Findings reviewed. Discussed that is possible she has a fracture, however, this is treated nonsurgically. She does not use her left arm to lift or weightbear, we discussed a sling as needed for comfort but she declines. Recommended gentle active assisted elbow, wrist, digits and gentle shoulder range of motion using her other extremity to prevent stiffness. We discussed ice and heat, Tylenol as needed for pain relief. Will follow-up in 6 weeks for repeat x-ray to ensure no changes. If the fracture appears stable at that time, we can consider a cortisone injection for pain relief. All of her concerns are addressed and she understands and agrees with the plan. Speech recognition brush fabrication supervisor software was used to create portions of this document. An attempt at proofreading has been made to minimize errors. Please call for corrections. Madhavi Raza PA-C [address] [facility], [place], [address], [facility] 06/08/2024 16:02:16 OBGyn Episode No OBEpisode recorded.
[2025-01-21 13:26] LABS: Basophils Absolute Auto 0.1 X10*3/uL (0.0-0.2); Basophils Percent Auto 0.9 % (0-2); Eosinophils Absolute Auto 0.3 X10*3/uL (0.0-0.4); Eosinophils Percent Auto 4.1 % (0-4); Hematocrit 30.2 % (37.0-47.0); Hemoglobin 9.2 g/dl (12.0-16.0); Imm Gran Abs Auto 0.01 X10*3/uL (0.00-0.03); Imm Gran Pct Auto 0.2 % (0.0-0.4); Lymphocytes Absolute Auto 3.2 X10*3/uL (1.2-4.9); Lymphocytes Percent Auto 48.9 % (20-40); Mean Corpuscular HGB Conc 30.5 g/dl (31.0-35.0); Mean Corpuscular Hemoglobin 26.5 pg (27.0-33.0); Mean Platelet Volume 9.5 fL (9.4-12.3); Monocytes Absolute Auto 0.6 X10*3/uL (0.1-1.2); Monocytes Percent Auto 8.3 % (2-11); Neutrophils Absolute Auto 2.5 x10*3/uL (2.0-8.3); Neutrophils Percent Auto 37.6 % (45-73); Platelet Count 275 X10*3/uL (160-400); Red Blood Count 3.47 X10*6/uL (4.20-5.50); Red Cell Distribution Width 16.6 % (11.0-16.0); White Blood Count 6.6 X10*3/uL (4.8-10.8)
[2025-01-21 14:04] LABS: Alanine Aminotransferase 13 U/L (0-31); Alkaline Phosphatase 99 U/L (39-117); Anion Gap 14 (12-20); Aspartate Amino Transferase 30 U/L (5-31); Bilirubin Total 0.3 mg/dL (0.0-1.0); Blood Urea Nitrogen 15 mg/dL (9-16); Calcium 9.1 mg/dL (8.4-10.2); Carbon Dioxide 25 mmol/L (22-29); Chloride 108 mmol/L (96-108); Estimated Glomerular Filt Rate > 60; Glucose Random 114 mg/dL (60-115); Sodium 143 mmol/L (135-145); Total Protein 6.9 g/dL (6.5-8.0)
== END 2025-01-21 12:45 | disposition home or self-care (01) ==
LOC: HO.HVNA 12:44
PROVIDERS: Visit Provider Internal Medicine Infectious Disease
DX: M86.9 Osteomyelitis, unspecified (principal); L97.428 Non-pressure chronic ulcer of left heel and midfoot with other specified severity; Z79.2 Long term (current) use of antibiotics
CPT/HCPCS: 36415; 80053; 85025

== ENCOUNTER 2025-01-28 15:49 | Outpatient (REF) | payer MEDICARE, MEDICAID, SELFPAY ==
--- OUTSIDE RECORDS SUMMARY | 2025-01-28 15:55 | XMS_ITS | Clinical Summary ---
Author Organization [facility] Address [address] [place] [address] Phone Care Team Providers Care Project Administrator Name Role Phone Harsha Escalante MD Primary Care Provider [phone] Allergies Active Allergy Reactions Criticality Noted Date [...] of heel, left 10/08/2024 Diabetic foot infection ([facility] V24, [facility] V2 8) 10/07/2024 Surgical History Surgery Date Site/Laterality Comments CARPAL TUNNEL RELEASE 1994, 1995, 1996 PROCEDURE: HISTORICAL CARPAL TUNNEL REL; COMMENT: 3 surg on R, 1 on L OTHER SURGICAL HISTORY PROCEDURE: DE LAPAROSCOPY W/LYSIS OF ADHESIONS OTHER SURGICAL HISTORY 1995 PROCEDURE: DE TOTAL ABDOMINAL HYSTERECT W/WO RMVL TUBE OVARY; COMMENT: open OOPHORECTOMY 2003, 2004 PROCEDURE: DE OOPHORECTOMY PARTIAL/TOTAL UNI/BI; COMMENT: R then L KIDNEY STONE SURGERY PROCEDURE: DE NEPHROLITHOTOMY REMOVAL CALCULUS CARDIAC CATHETERIZATION PROCEDURE: HISTORICAL CARDIAC CATH OVARIAN CYST REMOVAL 2004 PROCEDURE: DE OVARIAN CYSTECTOMY UNI/BI CHOLECYSTECTOMY 2004 PROCEDURE: DE CHOLECYSTECTOMY HERNIA REPAIR 2005 PROCEDURE: HISTORICAL HERNIA REPAIR/UMB HERNIA REPAIR 2006 PROCEDURE: HISTORICAL HERNIA REPAIR/UMB HERNIA REPAIR 2007 PROCEDURE: HISTORICAL HERNIA REPAIR/DAVID OTHER SURGICAL HISTORY 2007 PROCEDURE: HISTORICAL PANNICULECTOMY HYSTERECTOMY 1997 PROCEDURE: HISTORICAL HYSTERECTOMY Medical History Medical History Date Comments Zarina rash of groin DX:Zarina rash of groin Carpal tunnel syndrome on both sides DX:Carpal tunnel syndrome on both sides Stroke ([facility]/HCC V24, [facility] V28) DX:Stroke (HCC) Spinal stenosis DX:Spinal stenos is Shingles DX:Shingles Sepsis due to Zarina (CMS/H CC V24, CMS/HCC V28) DX:Sepsis due to Zarina (HC C) Diabetes mellitus ([facility]/HCC V 24, [facility] V28) DX:Diabetes mellitus (HCC) Seizure disorder (CMS/HCC V24, [facility] V28) DX:Seizure disorder (HCC) Hypertension DX:Hypertension Osteoarthritis [...] 11/19/2020, 10/25/2020 Breast Cancer Screening 05/11/2024 05/11/2022 Influenza Vaccine (#1) 2025 , 07/28/2023, 04/27/2022, Additional history exists Diabetes: Blood Sugar Control Test (HGBA1C) 04/09/2025 [...] 5 Years) and At-Risk Patients (6 to 49 Years) Completed 09/16/2023, 04/25/2018, 11/12/2014, Additional history exists Zoster Vaccines Completed 09/30/2023, 03/25, 12/13/2017, Additional history exists HIB Vaccines Aged Out [...] LAB CHEMISTRY METHOD 10/09/2024 9:48 AM EDT [facility] Triglycerides 180(H) 0 - 150 mg/dL LAB CHEMISTRY METHOD 10/09/2024 9:48 AM T [facility] HDL 29(L) >=40 mg/dL LAB CHEMISTRY METHOD 10/09/2024 9:48 AM [facility] LDL Calculated 92 0 - 100 mg/dL LAB CHEMISTRY METHOD 10/09/2024 9:48 AM [facility] VLDL Cholesterol Jose Juan 36 mg/dL LAB CHEMISTRY METHOD 10/09/2024 9:48 AM [facility] Non HDL Chol. (LDL+VLDL) 128 <145 mg/dL LAB CHEMISTRY METHOD 10/09/2024 9:48 AM T [facility] Chol/HDL Ratio 5.4(H) 0.0 - 4.4 LAB CHEMISTRY METHOD 10/09/2024 9:48 AM [facility] Blood Venous blood specimen / Unknown Venipuncture / Unknown 10/09/2024 6:43 AM EDT 10/09/2024 7:06 AM EDT us Rosanna HURD LAB BLOOD ORDERABLES Final Result [facility] [address] [place] [address], * (ABNORMAL) Basic metabolic panel (10/09/2024 6:43 AM EDT) Sodium 135 133 - 145 mmol/L LAB CHEMISTRY METHOD 10/09/2024 7:48 AM [facility] Potassium 4.3 3.5 - 5.5 mmol/L LAB CHEMISTRY METHOD 10/09/2024 7:48 AM [facility] Chloride 104 96 - 110 mmol/L LAB CHEMISTRY METHOD 10/09/2024 7:48 AM [facility] CO2 27 21 - 32 mmol/L LAB CHEMISTRY METHOD 10/09/2024 7:48 AM [facility] Anion Gap 4 3 - 11 LAB CHEMISTRY METHOD 10/09/2024 7:48 AM [facility] Glucose 260(H) 70 - 100 mg/dL LAB CHEMISTRY METHOD 10/09/2024 7:48 AM [facility] BUN 17 5 - 25 mg/dL LAB CHEMISTRY METHOD 10/09/2024 7:48 AM [facility] Creatinine 0.89 0.50 - 1.10 mg/dL LAB CHEMISTRY METHOD 10/09/2024 7:48 AM [facility] eGFR 72 >=60 mL/min/1. 73m2 LAB CHEMISTRY METHOD 10/09/2024 7:48 AM [facility] Comment:Calculation based on the Chronic Kidney Disease Epidemiology Collaboration (CKD-EPI) equation refit without adjustment for race. BUN/Creatinine Ratio 19.1 LAB CHEMISTRY METHOD 10/09/2024 7:48 AM [facility] Calcium 9.1 8.5 - 10.5 mg/dL LAB CHEMISTRY METHOD 10/09/2024 7:48 AM [facility] Blood Venous blood specimen / Unknown Venipuncture / Unknown 10/09/2024 6:43 AM EDT 10/09/2024 7:06 AM EDT Rosanna HURD LAB BLOOD ORDERABLES Final Result Performing Organization Address [facility]/ZIP Co de Phone Number [facility] [address] [place] [address], [place] [phone] * (ABNORMAL) Hemoglobin A1c (10/07/2024 12:26 PM EDT) Hemoglobin A1C 12.2(H) <6.5 % LAB CHEMISTRY METHOD 10/08/2024 12:34 PM EDT [facility] Mean Bld Glu Estim. 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 Care Teams Project Administrator Relationship Specialty Start Date End Date Harsha Escalante MD [address] [place], [place] PCP - General Neurology 03/17/20
--- OUTSIDE RECORDS SUMMARY | 2025-01-28 15:55 | XMS_ITS | Patient Health Record ---
[facility] Organization [facility] Address [address] [place] [address] Care Team Providers Care Progressive Die Maker Name Role Phone Ammy Pisano Primary Care Provider Unavaila Michael Huynh Unavailable [phone] Allergies Allergen (clinical drug ingredient) Drug/Non Drug [...] Problem Acquired hammer toe of right foot (48656174673643 05) Other hammer toe(s) (acquired), right foot (M20.41) Active confirmed Problem Acquired hammer toe of left foot (79902252747472 03) Other hammer toe(s) (acquired), left foot (M20.42) Active confirmed Problem Type 2 diabetes mellitus with peripheral angiopathy (202258868) Type 2 diabetes mellitus with diabetic peripheral angiopathy without gangrene (E11.51) Active confirmed Vital Signs Blood pressure diastolic 64 mm Hg 06/28/2024 Height 3yn02xf in 06/28/2024 Blood pressure systolic 162 mm Hg 06/28/2024 Weight 155 lbs 06/28/2024 BMI 31.3 kg/m2 06/28/2024 Procedures Procedure Date Ordered Date Performed Result Body Sit e 21545-IWSDXHA NAIL, 1-5 06/28/2024 N/A 60972-MOAD SKIN LESIONS, OVER 4 06/28/2024 N/A I0799-RFIDZZBA DYSTROPHIC NAILS ANY # 06/28/2024 N/A W8389-GGOAOOQZ DYSTROPHIC NAILS ANY # 03/22/2024 N/A 45195-FWJP SKIN LESIONS, OVER 4 03/22/2024 N/A 67829-NTBALCT NAIL, 1-5 03/22/2024 N/A Encounters Encounter Location Date Provider Diagnosis [facility] [address] [address] 03/22/2024 Michael Reece Type 2 diabetes mellitus with diabetic peripheral angiopathy without gangrene E11.51 ; Tinea unguium B35.1 ; Pain in right toe(s) M79.674 ; Pain in left toe(s) M79.675 ; Other hammer toe(s) (acquired), right foot M20.41 and Other hammer toe(s) (acquired), left foot M20.[address] [address] 06/28/2024 Michael Reece Type 2 diabetes mellitus with diabetic peripheral angiopathy without gangrene E11.51 ; Tinea unguium B35.1 ; Pain in right toe(s) M79.674 ; Pain in left toe(s) M79.675 and Xerosis of skin L85.[address] [address] 09/24/2024 Michael Reece [address] [address] 12/10/2024 Michael Reece Assessments Encounter Date Diagnosis [...] Treatment Pending Test Test Name Order Date 98203-JRMWJOY NAIL, 1-5 03/22/2024 35822-RXDYIRO NAIL, 1-5 06/28/2024 76939-IGDC SKIN LESIONS, OVER 4 06/28/20 24 24946-IBPT SKIN LESIONS, OVER 4 03/22/20 24 N4199-LEJVTOBT DYSTROPHIC NAILS ANY # K1411-OJUUSVZD DYSTROPHIC NAILS ANY # Insurance Providers Payer Name Payer Address Payer Phone Subscriber Number Group Number Insured Name Patient Relationship to Insured Coverage Start Date Coverage End Date [facility] [address] [address] [place] [address] [id number] Annmarie Bay Self - patient is the insured Medical (General) History Medical History History ICD Code asthma Cataracts Depression Diabetic Epilepsy Headaches/Migraines Surgical History Surgery Date(Month/Year) Gall bladder removal carpal tunnel surgery colostomy
--- OUTSIDE RECORDS SUMMARY | 2025-01-28 15:55 | XMS_ITS | Continuity of Care Document ---
Author Organization [facility] [address] [address] Phone [phone] Problems Active Problems Provider Date Insulin treated [...] ing Provider Date Freestyle Beny 3/Sensor/Glucose Monitoring Xzarnh7Qvoodz Misc use as one sensor every 14 days (DX: E11.9) 6units E11.9 Rosanna Diaz M.D. 02/13/2024 Freestyle Beny 3/[place]cean [place]/Glucose Monitoring Jqzcxr3Wkkwzt Device use as directed with sensors Dx: E11.9 1units E11.9 Rosanna Diaz M.D. 02/13/2024 Freestyle Beny 2/Sensor/Flash Glucose Monitoring Wmdqcy7Mhpubs Misc use as one sensor every 14 days (DX: E11.9) 6units E11.9 Rosanna Diaz M.D. 02/07/2024 Yvnqvmxnu95ib Tablets take 1 tab by mouth every day 30tabs Rosanna Diaz M.D. 08/02/2022 Contour Next Blood Glucose TestStrips Use To Test Finger Stick Blood Sugar 3 (Three) Times A Day 100units Tomas Brenner M.D. 05/13/2022 Humulin R U-500 Woakumf065Rjkt/ML Solution Pen-Inject Inject 60 Units Under The Skin Before Meals 3 (Three) Times A Day 12units Tomas Brenner M.D. 02/05/2022 Oxycodone HCL5mg Tablets Take 1 Tablet By Mouth Every 8 Hours For Severe Pain Unknown Atorvastatin Vgnnlgs27ez Tablets Unknown 00 Latanoprost0.005% Solution Aldo Patton [place] Comfort Ez Pen [place] 71KO5OG26L X 4 mm Misc Unknown [place] Choice Comfort Ez Pen [place] 63QG7WG41I X 4 mm Misc Use as Needed as Directed Unknown Duloxetine BTA24fk Caps DR Part Take 2 caps once daily Unknown Phenytoin Sodium Eivixaoq687cu Capsules Take 1 hs Unknown Fkhrcgsrey87hq Tablets Unknown Metoprolol Succinate DQ384na Tablets ER 24HR Take 1 tab daily Unknown Xhojccpfid751kt Capsules Take 3 capsules 3 times a day Unknown Oxybutynin Chloride ER5mg Tablets ER 24HR Unknown Albuterol Sulfate MZB120(90Base) mcg/Act Aerosol Inhale 2 puffs into the lungs every 6 (six) hours as needed for wheezing. Unknown Pjhushygz192oj Tablets Take 1 tablet every 8 hours Unknown History Medications Freestyle Beny 2/[place]/Flash Glucose Monitoring Qhlwgv0Fhsfdb Device use as directed with sensors 1untri [...] Inhouse Glucose Fingerstick 227 Gad65 Autoantibodies 11/11/2022 [facility] Gad65 Autoantibodies <pending> C-Peptide 11/11/2022 [facility] C-Peptide <pending> Glucose 11/11/2022 [facility] Glucose <pending> Hemoglobin A1c 11/09/2022 Inhouse Hemoglobin A1c 12.0% Glucose Fingerstick 11/09/2022 Inhouse Glucose Fingerstick 401 1 Normal: 0 - 29 Moderately increased: 30 - 300 Severely increased: >300 2 C-Peptide reference interval is for fasting patients. Procedures Date Code Description Status 12/18/2024 NSHOWOFF No Show Office Visit Complet ed 10/16/2024 95904 Glucose Monitoring Interpeta tion And Report Completed [...] complications I73.9 Peripheral vascular disease, unspecified Z79.4 intermodal dispatcher (current) use of insulin Z86.73 Prsnl hx [...] vascular disease, unspecified VICKEY Trejo 10/16/2024 Z79.4 intermodal dispatcher (current) use of i nsulin VICKEY Trejo [...]
--- OUTSIDE RECORDS SUMMARY | 2025-01-28 15:56 | XMS_ITS | Data Portability ---
Author Organization [place] [facility] Address [address] [place] [address] Assessment No assessment recorded. Plan of Treatment Reminders Order Date Submit Date Provider Last Modified By Organization Details Last Modified Time Details Appointments None recorded. Lab None recorded. Referral None recorded. Procedures None recorded. Surgeries None recorded. Imaging XR, shoulder, 2 or more view - new [facility] left shoulder and neck pain room [address] [facility], [address], [address], [address], 4 10:19:52 XR, cervical spine, 1 view - new [facility] left shoulder and neck pain room [address] [facility], [address], [address], [place], [address], 4 10:19:52 Medication Orders None recorded. Patient [...] a4ajBk vP9nXo QUaueC m3YtLR FvZlgJ JJ8mAn HZtai3 4e8776 AC0Kqa X2NUqS vKiQtr MwF INTERFACE [facility] [address], [place], [address], 06/08/2024 14:44:07 06/08/20 24 06/08/2024 XR, cervi gunnar spine , 1 view [email or web address] ?Encry pted=s hAaTro YD8dLq bEUv6g %2BXZw aYqtaq 0bqfl% 2Fg9IQ a4ajBk vP9nXo QUaueC m3YtLR FvZlgJ JJ8mAn HZtai3 6k5045 AC0Kqa X2NUqS vKiQtr MwF INTERFACE [facility] [address], [place], [address], 06/08/2024 14:44:09 06/08/20 24 06/08/2024 XR, shoul maira, 2 or more view [email or web address] ?Encry pted=s hAaTro YD8dLq bEUv6g %2BXZw aYqtaq 0bqfl% 2Fg9IQ a4ajBk vP9nXo QUaueC m3YtLR FvZl [place] HZtai3 1u9522 AC0Kqa X2NUqW kKiQtr MwF INTERFACE [facility] [address], [place], [address], 06/08/2024 14:51:44 06/08/20 24 06/08/2024 XR, shoul maira, 2 or more view [email or web address] ?Encry pted=s hAaTro YD8dLq bEUv6g %2BXZw aYqtaq 0bqfl% 2Fg9IQ a4ajBk vP9nXo QUaueC m3YtLR FvZlgJ JJ8mAn HZtai3 8a5650 AC0Kqa X2NUqW kKiQtr MwF INTERFACE [facility] [address], [place], [address], 06/08/2024 14:51:46 Result Notes Documentation Provider Name and Address Organization Details Recorded Time Xr, Cervical Spine, 1 View : [email or web address] Encrypted=sqRsCcoHX0sRjhL Uv6g%7HDBejLzxdl8etyv%2Fg 3WHc9bnUjnM8lLxDAxfwNe8Zp FFDcXfuRNV6qWzASbcz73d025 4OE2SiaS1AWnXjXiHohTgG Not Available [facility] 06/08/2024 14:44: 08 Xr, Cervical Spine, 1 View : [email or web address] Encrypted=azYqKfwUZ9tVozD Uv6g%5ARFpsAfaof9rklz%2Fg 5YUm4daRjhL8aGuHFoitLh0Hw OUPlDtlYTQ9lDnYCtii27v968 1TS1AunP0PWxJnVxNmjEzL Not Available [facility] 06/08/2024 14:44: 10 Xr, Shoulder, 2 Or More View : [email or web address] Encrypted=kjZsQnfUE2jWhmL Uv6g%2VRDhpDbowb1tbfg%2Fg 0VYm6jpCwxW4hAePBfctHx4Nc QXPxRjpWRY8qVnOZwje28g075 2GI0SxtV4AXkDuPrUguDrC Not Available [facility] 06/08/2024 14:51: 44 Xr, Shoulder, 2 Or More View : [email or web address] Encrypted=szRrMbtKV9lQzvV Uv6g%0XVPdmVxrpd6poqq%2Fg 2MLh0dwZfpY7pAhTHiyjGm1Go GRTvEyoLEG7iXyAVpqd61q051 0IY2ZevL7RHbHuVeDzrNqZ Not Available [facility] 06/08/2024 14:51: 46 Problems Name Problem SNOMED Code Status Onset Date Resolution Date Notes Provider Name and Address Organization Details Recorded Time Osteoarthri tis of knee 971140070 Active 2023 Astrid Maldonadoa, MAINTENANCE WORKER HOUSE TRAILER [address], [place], [address], [facility] 4 08:58:01 Pain of left shoulder joint 2472297176673 9109 Active 2023 Madhavi Leal i, PA-C [address], [place], [address], [facility] 4 12:52:45 Neck pain 84127706 Active 2023 RAVI L'HEUREUSreedhar [facility] 4 14:30:10 Problem Notes None recorded. Procedures Surgical History Date Name Laterality Status Provider Name and Address Organization Details Recorded Time 4 Knee Kenalog 40 1cc Injection, Bilateral completed Astrid Drenga, MAINTENANCE WORKER HOUSE TRAILER [address], [place], [address], [facility] 05/29/2024 09:26:34 4 Knee Kenalog 40 1cc Injection, Bilateral completed Astrid Drenga, MAINTENANCE WORKER HOUSE TRAILER [address], [place], [address], [facility] 01/30/2024 08:57:53 Imaging Results None recorded. Procedure Notes None recorded. Medical Equipment None Reported. Allergies Allergen ID Allergen Name Allergen Category Reaction Reaction Severity Criticality Documentation Date Start Date Code Code System Note Provider Name and Address Organization Details Recorded Time 37156 metformin hydrochlo ride medicatio n Not available Not available Not available 09/26/20232020 83086 3 RxNorm Not Available [facility] 4 11:09:28 57976 codeine medicatio n Not available Not available [...] Available No t Available FreeStyle Beny 3 [place] active Not Available Not Available Not Available Vitals Date Recorded Body height Body mass index (BMI) Body weight Provider Name and Address Organization Details Last Updated DateTime 01/30/2024 147.32 cm 34.5 kg/m2 53306.74 g CARA BRAR [facility] 01/30/2024 08:36:06 Date Recorded Body height Body mass index (BMI) Body weight Provider Name and Address Organization Details Last Updated DateTime 06/01/2024 147.32 cm 34.5 kg/m2 06653.74 g CARA BRAR [facility] 06/01/2024 16:06:15 Date Recorded Body height Body mass index (BMI) Body weight Provider Name and Address Organization Details Last Updated DateTime 06/08/2024 147.32 cm 34.5 kg/m2 40011.74 g RAVI PATINO [facility] 06/08/2024 14:28:55 Social History Question Answer Notes LastModified by Organizat ion Details LastModified Time Tobacco Smoking Status Never Smoker RAVI woodward [facility] 06/08/2024 14:29:34 What Is Your Relationship Status? [...] Reported. Medical History Condition Response Diabetes Y Seizures/Epilepsy Y Arthritis Y Stroke Y Headaches Y Hypertension Y Gynecological HistoryNo gynecological history recorded. Obstetrics History GPAL:G 0 P 0 0 0 0 Past Encounters Encounter ID Performer Location Encounter Start Date Encounter Closed Date Diagnosis/Indication Diagnosis SNOMED-CT Code Diagnosis ICD10 Code Diagnosis Note [id number] Astrid White CNP [facility] [address] [place] [address] 01/30/2024 08:30:21 02/13/2024 15:17:30 Osteoarthritis of knee 630010505 M17.9 [id number] Astrid White CNP [facility] [address] [place] [address] 06/01/2024 15:59:41 06/19/2024 15:35:32 [id number] Madhavi Raza PA-C [facility] [address] [place] [address] 06/08/2024 14:24:32 06/28/2024 10:19:52 Pain of left shoulder joint 2267135373 6065054 M25.512 Neck pain 48636503 M54.2 Health Concerns Section Related Observation LastModified by Organization Detai ls LastModified Time None Recorded Concern Status LastModified by Organization Details LastModified Time None Recorded Advance Directives Directive None Recorded Payers Insurance Date Sequence Insurance Name Policy Number Policy Pena Covered Member ID Pena Member ID Guarantor Name 09/03/2024 2 [place]marie davis [id number] Annmarie Jules 09/03/2024 1 [employer] (MEDICARE REPLACEMENT/A DVANTAGE - PPO) [id number] Annmarie Beasley susan [id number] Annmarie Jules 01/30/2024 1 [place] [facility] Annmarie Jules [id number] Annmarie Jules Notes Date Note Type Note Provider Name and Address Organization Details Recorded Time 01/30/2024 text/html Annmarie is a 63-year-old female here today for follow-up of her bilateral knees she had previous cortisone injection which gave her relief until recently. She presents today for further evaluation. Astrid White, JOSE [address], [place], [address], [facility] 01/30/2024 08:58:19 06/01/2024 text/html Annmarie is a 63-year-old female here today for follow-up of her bilateral knees she had previous cortisone injection which gave her relief until recently. She presents today for further evaluation. Astrid White CNP [address], [place], [address], [facility] 06/01/2024 16:39:11 06/08/2024 text/html I am seeing [...] cervical spine ordered, obtained and reviewed at [facility] today. Left shoulder demonstrates there seems to [...] and agrees with the plan. Speech recognition sprinkler driver software was used to create portions of this document. An attempt at proofreading has been made to minimize errors. Please call for corrections. Madhavi Raza PA-C [address] [facility] [address], [place], [address], [facility] [place] [facility] 06/08/2024 16:02:16 OBGyn Episode No OBEpisode recorded.
[2025-01-28 16:09] LABS: Hematocrit 25.4 % (37.0-47.0); Hemoglobin 7.8 g/dl (12.0-16.0); Imm Gran Abs Auto 0.01 X10*3/uL (0.00-0.03); Imm Gran Pct Auto 0.2 % (0.0-0.4); Lymphocytes Absolute Auto 3.8 X10*3/uL (1.2-4.9); MANUAL DIFF FLAG SCAN; Mean Corpuscular HGB Conc 30.7 g/dl (31.0-35.0); Mean Corpuscular Hemoglobin 25.7 pg (27.0-33.0); Mean Corpuscular Volume 83.8 fL (80.0-98.0); NRBC Abs Auto 0.000 X10*3/uL (0.0-0.012); NRBC Pct Auto 0.0 /100WBC (0.0-0.2); Platelet Count 218 X10*3/uL (160-400); Red Blood Count 3.03 X10*6/uL (4.20-5.50); SCAN SMEAR FLAG 1; White Blood Count 5.8 X10*3/uL (4.8-10.8)
[2025-01-28 16:17] LABS: Alanine Aminotransferase 9 U/L (0-31); Albumin Level 2.8 g/dL (3.5-5.0); Alkaline Phosphatase 83 U/L (39-117); Anion Gap 14 (12-20); Aspartate Amino Transferase 29 U/L (5-31); Blood Urea Nitrogen 13 mg/dL (9-16); Calcium 8.6 mg/dL (8.4-10.2); Carbon Dioxide 21 mmol/L (22-29); Chloride 110 mmol/L (96-108); Estimated Glomerular Filt Rate > 60; Potassium 3.6 mmol/L (3.3-5.1); Sodium 141 mmol/L (135-145); Total Protein 6.3 g/dL (6.5-8.0)
== END 2025-01-28 15:50 | disposition home or self-care (01) ==
LOC: HO.HVNA 15:49
PROVIDERS: Visit Provider Internal Medicine Infectious Disease
DX: B99.9 Unspecified infectious disease (principal)
CPT/HCPCS: 36415; 80053; 85025; 85652; 86140

== ENCOUNTER 2025-02-04 13:15 | Outpatient (REF) | payer MEDICARE, MEDICAID, SELFPAY ==
[2025-02-04 13:18] LABS: MANUAL DIFF FLAG NO
[2025-02-04 13:29] LABS: Hematocrit 25.7 % (37.0-47.0); Hemoglobin 8.2 g/dl (12.0-16.0); Imm Gran Abs Auto 0.01 X10*3/uL (0.00-0.03); Imm Gran Pct Auto 0.2 % (0.0-0.4); Lymphocytes Absolute Auto 2.6 X10*3/uL (1.2-4.9); Mean Corpuscular HGB Conc 31.9 g/dl (31.0-35.0); Mean Corpuscular Hemoglobin 26.3 pg (27.0-33.0); Mean Corpuscular Volume 82.4 fL (80.0-98.0); NRBC Abs Auto 0.000 X10*3/uL (0.0-0.012); NRBC Pct Auto 0.0 /100WBC (0.0-0.2); Platelet Count 396 X10*3/uL (160-400); Red Blood Count 3.12 X10*6/uL (4.20-5.50); White Blood Count 5.6 X10*3/uL (4.8-10.8)
--- OUTSIDE RECORDS SUMMARY | 2025-02-04 14:22 | XMS_ITS | Patient Health Record ---
Author Organization [facility] Address [address] [place] [address] Care Team Providers Care Mortgage Consultant Name Role Phone Ammy Pisano Primary Care Provider Unavaila Michael Huynh Unavailable [phone] Allergies Allergen (clinical drug ingredient) Drug/Non Drug [...] Problem Acquired hammer toe of right foot (59014810022899 05) Other hammer toe(s) (acquired), right foot (M20.41) Active confirmed Problem Acquired hammer toe of left foot (64419674234872 03) Other hammer toe(s) (acquired), left foot (M20.42) Active confirmed Problem Type 2 diabetes mellitus with peripheral angiopathy (661311785) Type 2 diabetes mellitus with diabetic peripheral angiopathy without gangrene (E11.51) Active confirmed Vital Signs Blood pressure diastolic 64 mm Hg 06/28/2024 Height 0be51dc in 06/28/2024 Blood pressure systolic 162 mm Hg 06/28/2024 Weight 155 lbs 06/28/2024 BMI 31.3 kg/m2 06/28/2024 Procedures Procedure Date Ordered Date Performed Result Body Sit e 70002-AONSFKH NAIL, 1-5 03/22/2024 N/A 92684-BVHW SKIN LESIONS, OVER 4 03/22/2024 N/A L4349-RGSFEWZR DYSTROPHIC NAILS ANY # 03/22/2024 N/A 80151-RYNYSNP NAIL, 1-5 06/28/2024 N/A 90084-CATV SKIN LESIONS, OVER 4 06/28/2024 N/A D6993-XKWZQTRB DYSTROPHIC NAILS ANY # 06/28/2024 N/A Encounters Encounter Location Date Provider Diagnosis [facility] [address] [address] 03/22/2024 Michael Reece Type 2 diabetes mellitus with diabetic peripheral angiopathy without gangrene E11.51 ; Tinea unguium B35.1 ; Pain in right toe(s) M79.674 ; Pain in left toe(s) M79.675 ; Other hammer toe(s) (acquired), right foot M20.41 and Other hammer toe(s) (acquired), left foot M20.[address] [address] 06/28/2024 Michael Reece Type 2 diabetes mellitus with diabetic peripheral angiopathy without gangrene E11.51 ; Tinea unguium B35.1 ; Pain in right toe(s) M79.674 ; Pain in left toe(s) M79.675 and Xerosis of skin L85.[address] [address] 09/24/2024 Michael Reece [address] [address] 12/10/2024 Michael Reece Assessments Encounter Date Diagnosis [...] Treatment Pending Test Test Name Order Date 78803-EDNROCD NAIL, 1-5 03/22/2024 08963-NIJEDSR NAIL, 1-5 06/28/2024 64218-PUHK SKIN LESIONS, OVER 4 06/28/20 24 31678-OXYE SKIN LESIONS, OVER 4 03/22/20 24 W9219-SXWKJGFL DYSTROPHIC NAILS ANY # D8941-QHDUZYTE DYSTROPHIC NAILS ANY # Insurance Providers Payer Name Payer Address Payer Phone Subscriber Number Group Number Insured Name Patient Relationship to Insured Coverage Start Date Coverage End Date [facility] [address] [address] [place] [address] [id number] Annmarie Bay Self - patient is the insured Medical (General) History Medical History History ICD Code asthma Cataracts Depression Diabetic Epilepsy Headaches/Migraines Surgical History Surgery Date(Month/Year) Gall bladder removal carpal tunnel surgery colostomy
--- OUTSIDE RECORDS SUMMARY | 2025-02-04 14:22 | XMS_ITS | Continuity of Care Document ---
Author Organization [facility] [address] [address] Phone [phone] Problems Active Problems Provider Date Insulin treated [...] ing Provider Date Freestyle Beny 3/Sensor/Glucose Monitoring Cbryik9Sgnfwy Misc use as one sensor every 14 days (DX: E11.9) 6units E11.9 Rosanna Diaz M.D. 02/13/2024 Freestyle Beny 3/Wilson/Glucose Monitoring Jirhnv2Icdzms Device use as directed with sensors Dx: E11.9 1units E11.9 Rosanna Diaz M.D. 02/13/2024 Freestyle Beny 2/Sensor/Flash Glucose Monitoring Uyimlo7Blkere Misc use as one sensor every 14 days (DX: E11.9) 6units E11.9 Rosanna Diaz M.D. 02/07/2024 Zrdpreyjf21yb Tablets take 1 tab by mouth every day 30tabs Rosanna Diaz M.D. 08/02/2022 Contour Next Blood Glucose TestStrips Use To Test Finger Stick Blood Sugar 3 (Three) Times A Day 100units Tomas Brenner M.D. 05/13/2022 Humulin R U-500 Plxuadu552Ilyt/ML Solution Pen-Inject Inject 60 Units Under The Skin Before Meals 3 (Three) Times A Day 12units Tomas Brenner M.D. 02/05/2022 Oxycodone HCL5mg Tablets Take 1 Tablet By Mouth Every 8 Hours For Severe Pain Unknown Atorvastatin Lfhtcch09sm Tablets Unknown 00 Latanoprost0.005% Solution Aldo Patton [place] Choice Comfort Ez Pen [place] 10FS7VJ62P X 4 mm Misc Unknown [place] Choice Comfort Ez Pen [place] 84LQ8VZ50T X 4 mm Misc Use as Needed as Directed Unknown Duloxetine XAG21ml Caps DR Part Take 2 caps once daily Unknown Phenytoin Sodium Bxhwdmzt016aq Capsules Take 1 hs Unknown Kzhuckufmr91at Tablets Unknown Metoprolol Succinate XQ928li Tablets ER 24HR Take 1 tab daily Unknown Pdcrqjjodc574or Capsules Take 3 capsules 3 times a day Unknown Oxybutynin Chloride ER5mg Tablets ER 24HR Unknown Albuterol Sulfate BVJ660(90Base) mcg/Act Aerosol Inhale 2 puffs into the lungs every 6 (six) hours as needed for wheezing. Unknown Hkiebwqzx495fg Tablets Take 1 tablet every 8 hours Unknown History Medications Freestyle Beny 2/Wilson/Flash Glucose Monitoring Mhxawe4Wzofxi Device use as directed with sensors 1untri [...] Inhouse Glucose Fingerstick 227 Gad65 Autoantibodies 11/11/2022 [facility] Gad65 Autoantibodies <pending> C-Peptide 11/11/2022 [facility] C-Peptide <pending> Glucose 11/11/2022 [facility] Glucose <pending> Hemoglobin A1c 11/09/2022 Inhouse Hemoglobin A1c 12.0% Glucose Fingerstick 11/09/2022 Inhouse Glucose Fingerstick 401 1 Normal: 0 - 29 Moderately increased: 30 - 300 Severely increased: >300 2 C-Peptide reference interval is for fasting patients. Procedures Date Code Description Status 12/18/2024 NSHOWOFF No Show Office Visit Complet ed 10/16/2024 10238 Glucose Monitoring Interpeta tion And Report Completed [...] complications I73.9 Peripheral vascular disease, unspecified Z79.4 long term care administrator (current) use of insulin Z86.73 Prsnl hx [...] vascular disease, unspecified VICKEY Trejo 10/16/2024 Z79.4 [facility] (current) use of i nsulin VICKEY Trejo [...]
--- OUTSIDE RECORDS SUMMARY | 2025-02-04 14:22 | XMS_ITS | Clinical Summary ---
Author Organization [facility] Address [address] [place] [address] Phone Care Team Providers Care Salesforce Developer Name Role Phone Harsha Escalante MD Primary Care Provider [phone] Allergies Active Allergy Reactions Criticality Noted Date [...] of heel, left 10/08/2024 Diabetic foot infection ([facility] V24, [facility] V2 8) 10/07/2024 Surgical History Surgery Date Site/Laterality Comments CARPAL TUNNEL RELEASE 1994, 1995, 1996 PROCEDURE: HISTORICAL CARPAL TUNNEL REL; COMMENT: 3 surg on R, 1 on L OTHER SURGICAL HISTORY PROCEDURE: CT LAPAROSCOPY W/LYSIS OF ADHESIONS OTHER SURGICAL HISTORY 1995 PROCEDURE: CT TOTAL ABDOMINAL HYSTERECT W/WO RMVL TUBE OVARY; COMMENT: open OOPHORECTOMY 2003, 2004 PROCEDURE: CT OOPHORECTOMY PARTIAL/TOTAL UNI/BI; COMMENT: R then L KIDNEY STONE SURGERY PROCEDURE: CT NEPHROLITHOTOMY REMOVAL CALCULUS CARDIAC CATHETERIZATION PROCEDURE: HISTORICAL CARDIAC CATH OVARIAN CYST REMOVAL 2004 PROCEDURE: CT OVARIAN CYSTECTOMY UNI/BI CHOLECYSTECTOMY 2004 PROCEDURE: CT CHOLECYSTECTOMY HERNIA REPAIR 2005 PROCEDURE: HISTORICAL HERNIA REPAIR/UMB HERNIA REPAIR 2006 PROCEDURE: HISTORICAL HERNIA REPAIR/UMB HERNIA REPAIR 2007 PROCEDURE: HISTORICAL HERNIA REPAIR/DAVID OTHER SURGICAL HISTORY 2007 PROCEDURE: HISTORICAL PANNICULECTOMY HYSTERECTOMY 1997 PROCEDURE: HISTORICAL HYSTERECTOMY Medical History Medical History Date Comments Zarina rash of groin DX:Zarina rash of groin Carpal tunnel syndrome on both sides DX:Carpal tunnel syndrome on both sides Stroke ([facility] V24, [facility] V28) DX:Stroke (HCC) Spinal stenosis DX:Spinal stenos is Shingles DX:Shingles Sepsis due to Zarina (CMS/H CC V24, CMS/HCC V28) DX:Sepsis due to Zarina (HC C) Diabetes mellitus ([facility] V 24, [facility] V28) DX:Diabetes mellitus (HCC) Seizure disorder (CMS/HCC V24, [facility] V28) DX:Seizure disorder (HCC) Hypertension DX:Hypertension Osteoarthritis [...] LAB CHEMISTRY METHOD 10/09/2024 9:48 AM EDT [facility] Triglycerides 180(H) 0 - 150 mg/dL LAB CHEMISTRY METHOD 10/09/2024 9:48 AM EDT [facility] HDL 29(L) >=40 mg/dL LAB CHEMISTRY METHOD 10/09/2024 9:48 AM EDT [facility] LDL Calculated 92 0 - 100 mg/dL LAB CHEMISTRY METHOD 10/09/2024 9:48 AM EDT [facility] VLDL Cholesterol Jose Juan 36 mg/dL LAB CHEMISTRY METHOD 10/09/2024 9:48 AM EDT [facility] Non HDL Chol. (LDL+VLDL) 128 <145 mg/dL LAB CHEMISTRY METHOD 10/09/2024 9:48 AM EDT [facility] Chol/HDL Ratio 5.4(H) 0.0 - 4.4 LAB CHEMISTRY METHOD 10/09/2024 9:48 AM EDT [facility] Blood Venous blood specimen / Unknown Venipuncture / Unknown 10/09/2024 6:43 AM EDT 10/09/2024 7:06 AM EDT us Rosanna HURD LAB BLOOD ORDERABLES Final Result [facility] [address] [place] [address], [place] [phone] * (ABNORMAL) Basic metabolic panel (10/09/2024 6:43 AM EDT) Sodium 135 133 - 145 mmol/L LAB CHEMISTRY METHOD 10/09/2024 7:48 AM [facility] Potassium 4.3 3.5 - 5.5 mmol/L LAB CHEMISTRY METHOD 10/09/2024 7:48 AM [facility] Chloride 104 96 - 110 mmol/L LAB CHEMISTRY METHOD 10/09/2024 7:48 AM [facility] CO2 27 21 - 32 mmol/L LAB CHEMISTRY METHOD 10/09/2024 7:48 AM [facility] Anion Gap 4 3 - 11 LAB CHEMISTRY METHOD 10/09/2024 7:48 AM [facility] Glucose 260(H) 70 - 100 mg/dL LAB CHEMISTRY METHOD 10/09/2024 7:48 AM [facility] BUN 17 5 - 25 mg/dL LAB CHEMISTRY METHOD 10/09/2024 7:48 AM [facility] Creatinine 0.89 0.50 - 1.10 mg/dL LAB CHEMISTRY METHOD 10/09/2024 7:48 AM [facility] eGFR 72 >=60 mL/min/1. 73m2 LAB CHEMISTRY METHOD 10/09/2024 7:48 AM [facility] Comment:Calculation based on the Chronic Kidney Disease Epidemiology Collaboration (CKD-EPI) equation refit without adjustment for race. BUN/Creatinine Ratio 19.1 LAB CHEMISTRY METHOD 10/09/2024 7:48 AM [facility] Calcium 9.1 8.5 - 10.5 mg/dL LAB CHEMISTRY METHOD 10/09/2024 7:48 AM [facility] Blood Venous blood specimen / Unknown Venipuncture / Unknown 10/09/2024 6:43 AM EDT 10/09/2024 7:06 AM EDT Rosanna HURD LAB BLOOD ORDERABLES Final Result Performing Organization Address City/[facility]/ZIP Co de Phone Number [facility] [address] [place] [address], [place] [phone] * (ABNORMAL) Hemoglobin A1c (10/07/2024 12:26 PM EDT) Hemoglobin A1C 12.2(H) <6.5 % LAB CHEMISTRY METHOD 10/08/2024 12:34 PM EDT [facility] Mean Bld Glu Estim. 303 mg/dL LAB CHEMISTRY METHOD 10/08/2024 12:34 PM EDT [facility] Blood Venous blood specimen / Unknown Venipuncture / Unknown 10/07/2024 12:26 PM EDT 10/07/2024 12:48 PM EDT Astrid Haddad NP LAB BLOOD ORDERABLES Fin al Result [facility] [address] [place] [address], [place] [phone] from Last 3 Months or Most Recently Relevant to Health Maintenance Insurance MEDICAID - [place] [employer] MEDICARE Advance Directives Documents on File Type Date Recorded Patient Buckle Sewer Expl [facility] Care Decision (hx) 05/13/2021 AD GONZALEZ DIRECTIVE [...] currently active code status orders. Care Teams Salesforce Developer Relationship Specialty Start Date End Date Harsha Escalante MD [address] [facility] [address] [place], [place] PCP - General Neurology 03/17/20
--- OUTSIDE RECORDS SUMMARY | 2025-02-04 14:23 | XMS_ITS | Data Portability ---
Author Organization [place] - [facility], [facility] Address [address] [place] [address] Assessment No assessment recorded. Plan of Treatment Reminders Order Date Submit Date Provider Last Modified By Organization Details Last Modified Time Details Appointments None recorded. Lab None recorded. Referral None recorded. Procedures None recorded. Surgeries None recorded. Imaging XR, shoulder, 2 or more view - new [facility] left shoulder and neck pain room [address] [facility] Office, [address], [address], [address], 4 10:19:52 XR, cervical spine, 1 view - new [facility] left shoulder and neck pain room [address] [facility] Office, [address], [address], [place], [address], 4 10:19:52 Medication Orders None recorded. Patient [...] a4ajBk vP9nXo QUaueC m3YtLR FvZlgJ JJ8mAn HZtai3 6o7258 AC0Kqa X2NUqS vKiQtr MwF INTERFACE [facility] [address], [place], [address], 06/08/2024 14:44:07 06/08/20 24 06/08/2024 XR, cervi gunnar spine , 1 view [email or web address]:/ [email or web address] ?Encry pted=s hAaTro YD8dLq bEUv6g %2BXZw aYqtaq 0bqfl% 2Fg9IQ a4ajBk vP9nXo QUaueC m3YtLR FvZlgJ JJ8mAn HZtai3 3s8305 AC0Kqa X2NUqS vKiQtr MwF INTERFACE [facility] [address], [place], [address], 06/08/2024 14:44:09 06/08/20 24 06/08/2024 XR, shoul maira, 2 or more view http:/ [email or web address] ?Encry pted=s hAaTro YD8dLq bEUv6g %2BXZw aYqtaq 0bqfl% 2Fg9IQ a4ajBk vP9nXo QUaueC m3YtLR FvZl JJ8Waco HZtai3 1u0902 AC0Kqa X2NUqW kKiQtr MwF INTERFACE [facility] [address], [place], [address], 06/08/2024 14:51:44 06/08/20 24 06/08/2024 XR, shoul maira, 2 or more view http:/ [email or web address] ?Encry pted=s hAaTro YD8dLq bEUv6g %2BXZw aYqtaq 0bqfl% 2Fg9IQ a4ajBk vP9nXo QUaueC m3YtLR FvZlgJ JJ8mAn HZtai3 7e1638 AC0Kqa X2NUqW kKiQtr MwF INTERFACE [facility] [address], [place], [address], 06/08/2024 14:51:46 Result Notes Documentation Provider Name and Address Organization Details Recorded Time Xr, Cervical Spine, 1 View : [email or web address] Encrypted=ydXeBjbVA7aVbeW Uv6g%7AYYsvDnqov9ddfe%2Fg 3XIo0wiOkhQ9sFvQNfbfBn7Oc GLKcPqtJPG4rWoFYola97u739 0DB9MesC1LAtCeQsZtaEoG Not Available [facility] 06/08/2024 14:44: 08 Xr, Cervical Spine, 1 View : [email or web address]? Encrypted=ymMuDudQT0jUtpD Uv6g%2LZMlpBtvyo3cjej%2Fg 9XEe0ysGlqI1hMbILiszUw5Gf VDUvKvbBIH1sNbTIxnv17h022 6HZ5McmJ1ESsUwUgMlkIyG Not Available [facility] 06/08/2024 14:44: 10 Xr, Shoulder, 2 Or More View : [email or web address]? Encrypted=ixNsDjaCR5aWecB Uv6g%1EEOleUzqiu7ctdv%2Fg 3QBq1xvHvgS0mCqBQtjvTx5Kb PBUdDybXEQ2qUwFFmpv79s246 8TO9VaqO9XIdSdToYxtGsO Not Available [facility] 06/08/2024 14:51: 44 Xr, Shoulder, 2 Or More View : [email or web address]? Encrypted=idHtWjvHJ0dDvjP Uv6g%5KNSwiNfiny5wcfu%2Fg 6AIy8egSziE0vWhOSmhaEt1Vy OKGrNbgBRV2zEvIUycc22e992 6KS2JhzU3OUiZvLgFsxPhO Not Available [facility] 06/08/2024 14:51: 46 Problems Name Problem SNOMED Code Status Onset Date Resolution Date Notes Provider Name and Address Organization Details Recorded Time Osteoarthri tis of knee 977762374 Active 2023 Astrid Maldonadoa, REJECT OPENER AND FILLER [address], [place], [address], [facility] 4 08:58:01 Pain of left shoulder joint 4454597886037 9109 Active 2023 Madhavi Leal i, PA-C [address], [place], [address], [facility] 4 12:52:45 Neck pain 23043422 Active 2023 RAVI L'HEUREUSreedhar [facility] 4 14:30:10 Problem Notes None recorded. Procedures Surgical History Date Name Laterality Status Provider Name and Address Organization Details Recorded Time 4 Knee Kenalog 40 1cc Injection, Bilateral completed Astrid Drenga, RE[employer]ER [address], [place], [address], [facility] 05/29/2024 09:26:34 4 Knee Kenalog 40 1cc Injection, Bilateral completed Astrid Drenga, RE[employer]ER [address], [place], [address], [facility] 01/30/2024 08:57:53 Imaging Results None recorded. Procedure Notes None recorded. Medical Equipment None Reported. Allergies Allergen ID Allergen Name Allergen Category Reaction Reaction Severity Criticality Documentation Date Start Date Code Code System Note Provider Name and Address Organization Details Recorded Time 80746 metformin hydrochlo ride medicatio n Not available Not available Not available 09/26/20232020 42267 3 RxNorm Not Available [facility] 4 11:09:28 71428 codeine medicatio n Not available Not available Not available 09/26/20232020 2670 RxNorm Not Available [facility] 4 11:09:28 Medications Name Sig Start Date [...] Available No t Available FreeStyle Beny 3 [place] active Not Available Not Available Not Available Vitals Date Recorded Body height Body mass index (BMI) Body weight Provider Name and Address Organization Details Last Updated DateTime 01/30/2024 147.32 cm 34.5 kg/m2 97700.74 g CARA BRAR [facility] 01/30/2024 08:36:06 Date Recorded Body height Body mass index (BMI) Body weight Provider Name and Address Organization Details Last Updated DateTime 06/01/2024 147.32 cm 34.5 kg/m2 01760.74 g CARA BRAR [facility] 06/01/2024 16:06:15 Date Recorded Body height Body mass index (BMI) Body weight Provider Name and Address Organization Details Last Updated DateTime 06/08/2024 147.32 cm 34.5 kg/m2 85891.74 g RAVI PATINO [facility] 06/08/2024 14:28:55 Social History Question Answer Notes LastModified by Organizat ion Details LastModified Time Tobacco Smoking Status Never Smoker RAVI woodward [facility] 06/08/2024 14:29:34 What Is Your [...] Response Diabetes Y Seizures/Epilepsy Y Arthritis Y Headaches Y Stroke Y Hypertension Y Gynecological HistoryNo gynecological history recorded. Obstetrics History GPAL:G 0 P 0 0 0 0 Past Encounters Encounter ID Performer Location Encounter Start Date Encounter Closed Date Diagnosis/Indication Diagnosis SNOMED-CT Code Diagnosis ICD10 Code Diagnosis Note [id number] Astrid White CNP [facility] [address] [place] [address] 01/30/2024 08:30:21 02/13/2024 15:17:30 Osteoarthritis of knee 826113314 M17.9 [id number] Astrid White CNP [facility] [address] [place] [address] 06/01/2024 15:59:41 06/19/2024 15:35:32 [id number] KAIT Rodrigues [address] [place] [address] 06/08/2024 14:24:32 06/28/2024 10:19:52 Pain of left shoulder joint 0347597894 8406510 M25.512 Neck pain 79879631 M54.2 Health Concerns Section Related Observation LastModified by Organization Detai ls LastModified Time None Recorded Concern Status LastModified by Organization Details LastModified Time None Recorded Advance Directives Directive None Recorded Payers Insurance Date Sequence Insurance Name Policy Number Policy Pena Covered Member ID Pena Member ID Guarantor Name 09/03/2024 2 [place] [id number]is [id number] Annmarie Jules 09/03/2024 1 [employer] (MEDICARE REPLACEMENT/A DVANTAGE - PPO) [id number] Annmarie Beasley susan [id number] Annmarie Jules 01/30/2024 1 [place] B[place]: [facility] Annmarie Jules [id number] Annmarie Jules Notes Date Note Type Note Provider Name and Address Organization Details Recorded Time 01/30/2024 text/html Annmarie is a 63-year-old female here today for follow-up of her bilateral knees she had previous cortisone injection which gave her relief until recently. She presents today for further evaluation. Astrid White, JOSE [address], [place], [address], [facility] 01/30/2024 08:58:19 06/01/2024 text/html Annmarie is a 63-year-old female here today for follow-up of her bilateral knees she had previous cortisone injection which gave her relief until recently. She presents today for further evaluation. Astrid White CNP [address], [place], [address], [facility] 06/01/2024 16:39:11 06/08/2024 text/html I [...] cervical spine ordered, obtained and reviewed at [facility] today. Left shoulder demonstrates there seems [...] and agrees with the plan. Speech recognition radioactivity technician software was used to create portions of this document. An attempt at proofreading has been made to minimize errors. Please call for corrections. Madhavi Raza PA-C [address] [facility] [address], [place], [address], [facility] 06/08/2024 16:02:16 OBGyn Episode No OBEpisode recorded.
[2025-02-04 14:30] LABS: Alanine Aminotransferase < 6 U/L (0-31); Albumin Level 2.8 g/dL (3.5-5.0); Alkaline Phosphatase 92 U/L (39-117); Anion Gap 12 (12-20); Aspartate Amino Transferase 17 U/L (5-31); Blood Urea Nitrogen 7 mg/dL (9-16); Calcium 8.5 mg/dL (8.4-10.2); Carbon Dioxide 25 mmol/L (22-29); Chloride 107 mmol/L (96-108); Estimated Glomerular Filt Rate > 60; Potassium 3.6 mmol/L (3.3-5.1); Sodium 140 mmol/L (135-145); Total Protein 6.0 g/dL (6.5-8.0)
== END 2025-02-04 13:16 | disposition home or self-care (01) ==
LOC: HO.HVNA 13:15
PROVIDERS: Visit Provider Internal Medicine Infectious Disease
DX: T81.41XD Infection following a procedure, superficial incisional surgical site, subsequent encounter (principal); Z79.2 Long term (current) use of antibiotics
CPT/HCPCS: 36415; 80053; 85025; 85652; 86140

== ENCOUNTER 2025-02-11 13:19 | Outpatient (REF) | payer MEDICARE, MEDICAID, SELFPAY ==
--- OUTSIDE RECORDS SUMMARY | 2024-12-10 06:45 | XMS_ITS ---
Author Organization [facility] Patricia yelena [place] Address [address] [facility] [place] [address] Care Team Providers Care Track Service Worker Name Role Phone Ammy Pisano Primary Care Provider Unavaila Michael Huynh Unavailable [phone] Medications Medication SIG (Take, Route, Frequency, Duration) Notes Start Date End Date Status Ammonium Lactate 12 % 1 application Exte rnally to affected areas of dry skin to feet except for between the toes Twice a day; Duration: 30 days Active predniSONE Active HumaLOG Active oxyCODONE HCl 10 MG 1 tablet as needed O rally every 6 hrs Active Metoprolol Succinate 200 MG 1 capsule Orally Once a day; Duration: 30 day(s) Active Magnesium 400 MG as directed Orally Active Phenytoin Sodium Extended 100 MG 1 capsule Orally every 12 hrs; Duration: 30 day(s) Active DULoxetine HCl 60 MG 1 capsule Orally On ce a day; Duration: 30 day(s) Active Gabapentin 400 MG 1 capsule Orally Onc e a day; Duration: 30 day(s) Active Extra Depth Orthopedic Shoes, (1) Pair With (3) Pair Custom Heat Molded Multidensity Innersoles Dx: NIDDM/PVD(E11.51), Hammertoe Foot Deformity(M20.41,M20.42), Preulcerative Skin Lesion(s)(L85.1) Wear Daily; Duration: 365 days 03/22/2024 Active levETIRAcetam 500 MG 1 tablet Orally noé ry 12 hrs; Duration: 30 day(s) Active Encounters Encounter Location Date Provider Diagnosis [facility] [address] [facility] [address] [place] [address] 12/10/2024 Michael Reece Plan Of Treatment No Information Progress Notes * Annmarie HIDALGO RDOB :1960 (64 yo F)Acc No.[id number]:12/10/2024 Progress Note Patient: Annmarie HA Provider: Yobany Reece DPM :1960 A ge:64 Y S ex:Female Date:12/10/2024 Address:[address] [place] [id number] Pcp:Ammy Pisano Subjective: * Chief Complaints: * * ROS: G eneral/Constitutional: Nausea d enies. V omiting d enies. H pedrito Thirst d enies. L oss appetite d enies. C hills d enies. F atigue d enies.?Fever d enies. N ight Sweats d enies. U nexplained weight loss d enies. U nexplained weight gain d enies. H EENTM: Dentures d enies. D izziness d enies. G lasses/contacts d enies. R etinopathy d enies. B lurred/double vision d enies. T MJ?denies. D ischarge/drainage d enies. I mplants d enies. S ore throat d enies. D ental implants d enies. H ryan of hearing d enies. D ifficulty chewing/swallowing/speaking d enies. N ose bleeds d enies. S ore mouth d enies. ? R espiratory: On Oxygen d enies. P neumonia/pleurisy d enies.?Bronchitis d enies. E mphysema d enies. C oughing d enies. C ough blood?denies. S hortness of breath d enies. W heezing d enies. C ardiovascular: Pacemaker d enies. M ART PROFESSOR d enies. W PW d enies. C HF d enies. H eart attack d enies. S eptal defect d enies. R apid beat d enies. C hest pain d enies. A trial Fib. d enies. M urmur/Palpitations d enies. G astrointestinal: Hemorrhoids d enies. S tomach/Abdominal pain d enies. D ark blood stool d enies. I rritable bowel d enies. C onstipation d enies. D iarrhea d enies. H ematology: Swelling a dmits. C lots d enies. V aricose Veins d enies. B ruising d enies. B leeding problem d enies. G enitourinary: Blood urine d enies. F requent/Painfu/urination/bladder control d enies. K idney stones d enies. I nfection (UTI) d enies. N ephropathy d enies. s ex trans dis (STD) d enies. P rostate d enies. M usculoskeletal: Hammertoes a dmits. B unions d enies. B ack Pain d enies. M uscle Cramps/ Resting d enies. M uscle cramps / walking d enies.?Generalized aches and pains d enies. W eakness a dmits , that is mild , bilateral lower extremities. I nteg.: Cherry d enies. S cars d enies. C orns/calluses?admits. I ngrown nails a dmits. P ainful nails a dmits. O pen Sores d enies. R ashes d enies. N eurologic: Difficulty sleeping d enies. B rain disorder d enies. N umbness d enies. B alance trouble a dmits. C onfusion d enies. F ainting/blackouts d enies. T ingling d enies. T remors d enies. * Medical History: * Medications: T aking predniSONE , Taking HumaLOG , Taking oxyCODONE HCl 10 MG Tablet 1 tablet as needed Orally every 6 hrs , Taking Metoprolol Succinate 200 MG Capsule ER 24 Hour Sprinkle 1 capsule Orally Once a day , Taking levETIRAcetam 500 MG Tablet 1 tablet Orally every 12 hrs , Taking Magnesium 400 MG Tablet as directed Orally , Taking Phenytoin Sodium Extended 100 MG Capsule 1 capsule Orally every 12 hrs , Taking DULoxetine HCl 60 MG Capsule Delayed Release Particles 1 capsule Orally Once a day , Taking Gabapentin 400 MG Capsule 1 capsule Orally Once a day , Taking Extra Depth Orthopedic Shoes, (1) Pair With (3) Pair Custom Heat Molded Multidensity Innersoles . Dx: NIDDM/PVD(E11.51), Hammertoe Foot Deformity(M20.41,M20.42), Preulcerative Skin Lesion(s)(L85.1) Wear Daily , Taking Ammonium Lactate 12 % Cream 1 application Externally to affected areas of dry skin to feet except for between the toes Twice a day Objective: * Vitals: * P ast Orders: L ab:HEMOGLOBIN A1C (GLYCOHEMOGLOBIN) (Order Date - 03/22/2024) (Collection Date & Time - 03/22/2024 02:34 PM) Value Reference Range HEMOGLOBIN A1C % (HH) 11 Assessment: Plan: * Treatment: * Images: * The named appointment provid er may or may not be the originator of this progress note, and it is not deemed complete until electronically signed by the appointment provider. Sign off status: Pending * Provider: Yobany Reece DPM Date: 0 12/10/2024 Generated for Tray patel/Marito/Michele on: 0 02/11/2025 02:07 PM EDT
[2025-02-11 13:25] LABS: MANUAL DIFF FLAG NO
[2025-02-11 13:33] LABS: Hematocrit 29.3 % (37.0-47.0); Hemoglobin 9.0 g/dl (12.0-16.0); Imm Gran Abs Auto 0.01 X10*3/uL (0.00-0.03); Imm Gran Pct Auto 0.1 % (0.0-0.4); Lymphocytes Absolute Auto 3.4 X10*3/uL (1.2-4.9); Mean Corpuscular HGB Conc 30.7 g/dl (31.0-35.0); Mean Corpuscular Hemoglobin 25.4 pg (27.0-33.0); Mean Corpuscular Volume 82.5 fL (80.0-98.0); NRBC Abs Auto 0.000 X10*3/uL (0.0-0.012); NRBC Pct Auto 0.0 /100WBC (0.0-0.2); Platelet Count 534 X10*3/uL (160-400); Red Blood Count 3.55 X10*6/uL (4.20-5.50); White Blood Count 7.6 X10*3/uL (4.8-10.8)
[2025-02-11 14:02] LABS: Alanine Aminotransferase < 6 U/L (0-31); Albumin Level 2.8 g/dL (3.5-5.0); Alkaline Phosphatase 105 U/L (39-117); Anion Gap 14 (12-20); Aspartate Amino Transferase 25 U/L (5-31); Blood Urea Nitrogen 10 mg/dL (9-16); Calcium 8.5 mg/dL (8.4-10.2); Carbon Dioxide 26 mmol/L (22-29); Chloride 105 mmol/L (96-108); Estimated Glomerular Filt Rate > 60; Potassium 3.6 mmol/L (3.3-5.1); Sodium 141 mmol/L (135-145); Total Protein 6.3 g/dL (6.5-8.0)
--- OUTSIDE RECORDS SUMMARY | 2025-02-11 14:07 | XMS_ITS | Encounter Summary ---
Author Organization [facility] Address [address] [place] [address] Phone Care Team Providers Care Manager Sourcing Name Role Phone Rob Wood MD Unavailable [phone] Rob Wood MD Primary Care Provider [phone] Sierra Miranda RN Unavailable [phone] mAmy Tineo MD Primary Care Provider Ammy Tineo MD Unavailable [phone] Encounter Details Date Type Department Care Team (Late st Contact Info) Description 12/02/2021 Ancillary Orders [facility] [address] [place], [place] [id number] Mauricio Shah, [address] [facility] [address] [place] [address] [email or web address] PVD (peripheral vascular disease) Social History Tobacco Use Types Packs/Day Years Used Date Smoking Tobacco: Never Smokeless Tobacco: Never Alcohol Use Standard Drinks/Week Comments No 0 (1 standard drink = 0.6 oz pur e alcohol) Child or Family Care Answer Date Record ed Do you have problems with on e of the following making it difficult for you to work, study, or receive health care? No 12/09/2020 Education Answer Date Recorded Are you interested in help w ith more adult education (for example, completing high school, GED, job training, learning the Malay language, technical skills, or developing parenting skills)? No 12/09/2020 Food Answer Date Recorded Within the past 6 months we worried whether our food would run out before we got money to buy more. Sometimes True 021 Within the past 6 months the food we bought just didn't last and we didn't have enough money to get more. Sometimes True 11/22 Paying for Meds Answer Date Recorded Do you have trouble paying for medicines? No 12/09/2020 Paying Utility Bills Answer Date Record ed Do you have trouble paying your heating or elect ricity bill? No 12/09/2020 Transportation Answer Date Recorded Has the lack of transportati on kept you from medical appointments or from getting medications? No 12/09/2020 Unemployment Answer Date Recorded Are you currently unemployed or working on a part-time or temporary basis, and looking for work? No 12/09/2020 Comments No Sex and Gender Information Value Date Recorded Sex Assigned at Female 03/20/2018 12:50 PM EDT Legal Sex Female 9:49 PM EDT Gender Identity Female 03/20/2018 12:50 PM EDT Sexual Orientation Straight 03/20/2018 12 :50 PM EDT documented as of this encounter Plan of Treatment Upcoming Encounters Date Type Department Care Team (Late st Contact Info) Description 09/03/2024 Procedure Pass [address] [address] 03/15/2025 12:30 PM EDT Appointment [address] [address] Ammy Tineo MD [address] [place] [address], [address] [place] [address] [email or web address] documented as of this encounter Results * US Lower Extremity Arteries (JENIFFER) Physio Complete Unilat (12/02/2021 2:33 PM EDT) Anatomical Region Laterality Modality Ultrasound Narrative 12/07/2021 2:15 PM EDT See scanned report Procedure Note Mauricio Shah - 12/07/2021 See scanned report us Mauricio Shah DO CV US VASCULAR Final Result documented in this encounter Visit Diagnoses Diagnosis Carotid artery disease without cerebral infarction Other specified transient cerebral ischemias PVD (peripheral vascular disease) Unspecified peripheral vascular disease PVD (peripheral vascular disease) Unspecified peripheral vascular disease documented in this encounter Additional Health Concerns Infection Onset Date Last Indicated Resolved Time CoV-Risk 01/06/2022 01/06/2022 01/17/2022 1:22 AM EDT Assessment Noted Time PHQ-9 Depression Total Score: 25 022 3:11 PM EDT PHQ-2 Depression Total Score: 6 10/09/19 22 3:11 PM EDT documented as of this encounter Care Teams Manager Sourcing Relationship Specialty Start Date End Date Rob Wood MD [address] [place] [phone] [email or web address] PCP - General Family Medicine 04/30/17 07/26/23 Ammy Tineo MD [address] [place] [phone] [email or web address] PCP - General Family Medicine 07/27/23 Rob Wood MD [address] [place] [address] [email or web address] Insurance Assigned Provider 04/30/1710/29/23 Sierra Miranda, RN [address] [place] [phone] [email or web address] Revenue Field Auditor 01/08/20 09/02/24 Ammy Tineo MD [address] [place] [phone] [email or web address] Insurance Assigned Provider 10/29/2304/29 documented as of this encounter Additional Source Comments The information contained in this document represents components of the legal health record. It is not the complete legal health record.[facility]
--- OUTSIDE RECORDS SUMMARY | 2025-02-11 14:07 | XMS_ITS | Data Portability ---
Author Organization [place] - [facility], [facility] Address [address] [place] [address] Assessment No assessment recorded. Plan of Treatment Reminders Order Date Submit Date Provider Last Modified By Organization Details Last Modified Time Details Appointments None recorded. Lab None recorded. Referral None recorded. Procedures None recorded. Surgeries None recorded. Imaging XR, shoulder, 2 or more view - [facility] 208 2023 024 [facility], [address], [address], [address], 4 10:19:52 XR, cervical spine, 1 view - [facility] left shoulder and neck pain room 208 2023 024 [facility], [address], [address], [place], [address], 4 10:19:52 Medication Orders None recorded. Patient [...] a4ajBk vP9nXo QUaueC m3YtLR FvZlgJ JJ8mAn HZtai3 1x7876 AC0Kqa X2NUqS vKiQtr MwF INTERFACE [facility] [email or web address], [place], [address], 06/08/2024 14:44:07 06/08/20 24 06/08/2024 XR, cervi gunnar spine , 1 view [email or web address] ?Encry pted=s hAaTro YD8dLq bEUv6g %2BXZw aYqtaq 0bqfl% 2Fg9IQ a4ajBk vP9nXo QUaueC m3YtLR FvZlgJ JJ8mAn HZtai3 2k2141 AC0Kqa X2NUqS vKiQtr MwF INTERFACE [facility] [address], [place], [address], 06/08/2024 14:44:09 06/08/20 24 06/08/2024 XR, shoul maira, 2 or more view [email or web address] ?Encry pted=s hAaTro YD8dLq bEUv6g %2BXZw aYqtaq 0bqfl% 2Fg9IQ a4ajBk vP9nXo QUaueC m3YtLR FvZl JJ8Haz[place] HZtai3 1a9299 AC0Kqa X2NUqW kKiQtr MwF INTERFACE [facility] [address], [place], [address], 06/08/2024 14:51:44 06/08/20 24 06/08/2024 XR, shoul maira, 2 or more view [email or web address] ?Encry pted=s hAaTro YD8dLq bEUv6g %2BXZw aYqtaq 0bqfl% 2Fg9IQ a4ajBk vP9nXo QUaueC m3YtLR FvZlgJ JJ8mAn HZtai3 9i6311 AC0Kqa X2NUqW kKiQtr MwF INTERFACE [facility] [address], [place], [address], 06/08/2024 14:51:46 Result Notes Documentation Provider Name and Address Organization Details Recorded Time Xr, Cervical Spine, 1 View : [email or web address] Encrypted=vpBeInxJZ5eZhtD Uv6g%9LZIytTxxlq1xbqc%2Fg 0FTs4ukOviW6xItRVteuOb9Zl UUFnPgmHOY0zLvYMezc62x046 0YB0HocQ9UViQqQpGbnTmE Not Available [facility] 06/08/2024 14:44: 08 Xr, Cervical Spine, 1 View : [email or web address] Encrypted=erStDpdYX5pBknV Uv6g%2YHTbbNznaz6akjs%2Fg 3HHh7alEfuO5gVnZJsmfNi4Ox BDKiWgdBCN1vGnHKktv57v922 3MC2ErvE6GUiSaUnMxmUdX Not Available [facility] 06/08/2024 14:44: 10 Xr, Shoulder, 2 Or More View : [email or web address] Encrypted=iqGpSzaAY8cCmaF Uv6g%6RMWfaZiefy3cgcg%2Fg 6JYx2zxJizY0aPyMLshwMg3Ug MFUoDunTOA3oPhHKoja46v873 6US6DyqZ2NVtYuFtCaxGgB Not Available [facility] 06/08/2024 14:51: 44 Xr, Shoulder, 2 Or More View : [email or web address] Encrypted=ugEgHwpZG6tUcoV Uv6g%6SXZxcSfhsm4wdeb%2Fg 3XAk6qyTrxS3zNbWBgazZz0Dr WMCjEitNEF0yMrKObwj64i837 6PR2RavI3IStWsWmRneYeT Not Available [facility] 06/08/2024 14:51: 46 Problems Name Problem SNOMED Code Status Onset Date Resolution Date Notes Provider Name and Address Organization Details Recorded Time Osteoarthri tis of knee 294014047 Active 2023 Astrid Maldonadoa, SALES ORDER PROCESSOR [address], [place], [address], [facility] 4 08:58:01 Pain of left shoulder joint 4778570533660 9109 Active 2023 Madhavi Leal i, PA-C [address], [place], [address], [facility] 4 12:52:45 Neck pain 84568401 Active 2023 RAVI L'HEUREUSreedhar [facility] 4 14:30:10 Problem Notes None recorded. Procedures Surgical History Date Name Laterality Status Provider Name and Address Organization Details Recorded Time 4 Knee Kenalog 40 1cc Injection, Bilateral completed Astrid Drenga, SALES ORDER PROCESSOR [address], [place], [address], [facility] 05/29/2024 09:26:34 4 Knee Kenalog 40 1cc Injection, Bilateral completed Astrid Drenga, SALES ORDER PROCESSOR [address], [place], [address], [facility] 01/30/2024 08:57:53 Imaging Results None recorded. Procedure Notes None recorded. Medical Equipment None Reported. Allergies Allergen ID Allergen Name Allergen Category Reaction Reaction Severity Criticality Documentation Date Start Date Code Code System Note Provider Name and Address Organization Details Recorded Time 18733 metformin hydrochlo ride medicatio n Not available Not available Not available 09/26/20232020 56913 3 RxNorm Not Available [facility] 4 11:09:28 46435 codeine medicatio n Not available Not available Not available 09/26/20232020 2670 RxNorm Not Available [facility] 4 11:09:28 Medications Name Sig Start [...] Available No t Available FreeStyle Beny 3 Emerson active Not Available Not Available Not Available Vitals Date Recorded Body height Body mass index (BMI) Body weight Provider Name and Address Organization Details Last Updated DateTime 01/30/2024 147.32 cm 34.5 kg/m2 09638.74 g CARA BRAR [facility] 01/30/2024 08:36:06 Date Recorded Body height Body mass index (BMI) Body weight Provider Name and Address Organization Details Last Updated DateTime 06/01/2024 147.32 cm 34.5 kg/m2 43805.74 g CARA BRAR [facility] 06/01/2024 16:06:15 Date Recorded Body height Body mass index (BMI) Body weight Provider Name and Address Organization Details Last Updated DateTime 06/08/2024 147.32 cm 34.5 kg/m2 34777.74 g RAVI PATINO [facility] 06/08/2024 14:28:55 Social History Question Answer Notes LastModified by Organizat ion Details LastModified Time Tobacco Smoking Status Never Smoker RAVI woodward [facility] 06/08/2024 14:29:34 What Is Your Relationship [...] SNOMED-CT Code Diagnosis ICD10 Code Diagnosis Note [id number] Astrid White CNP [facility] [address] [place] [address] 01/30/2024 08:30:21 02/13/2024 15:17:30 Osteoarthritis of knee 559018175 M17.9 [id number] Astrid White CNP [facility] [address] [place] [address] 06/01/2024 15:59:41 06/19/2024 15:35:32 [id number] KAIT Rodrigues [address] [place] [address] 06/08/2024 14:24:32 06/28/2024 10:19:52 Pain of left shoulder joint 2890400898 1479024 M25.512 Neck pain 57496885 M54.2 Health Concerns Section Related Observation LastModified by Organization Detai ls LastModified Time None Recorded Concern Status LastModified by Organization Details LastModified Time None Recorded Advance Directives Directive None Recorded Payers Insurance Date Sequence Insurance Name Policy Number Policy Pena Covered Member ID Pena Member ID Guarantor Name 09/03/2024 2 [place] [id number] Annmarie davis [id number] Annmarie Jules 09/03/2024 1 [employer] (MEDICARE REPLACEMENT/A DVANTAGE - PPO) [id number] Annmarie Beasley susan [id number] Annmarie Jules 01/30/2024 1 [place] B[place] [facility] Annmarie Jules [id number] Annmarie Jules Notes Date Note Type Note Provider Name and Address Organization Details Recorded Time 01/30/2024 text/html Annmarie is a 63-year-old female here today for follow-up of her bilateral knees she had previous cortisone injection which gave her relief until recently. She presents today for further evaluation. Astrid White, JOSE [address], [place], [address], [facility] 01/30/2024 08:58:19 06/01/2024 text/html Annmarie is a 63-year-old female here today for follow-up of her bilateral knees she had previous cortisone injection which gave her relief until recently. She presents today for further evaluation. Astrid White CNP [address], [place], [address], [facility] 06/01/2024 16:39:11 06/08/2024 text/html I am [...] ordered, obtained and reviewed at [facility] today. Left shoulder demonstrates there seems [...] and agrees with the plan. Speech recognition costume shop manager software was used to create portions of this document. An attempt at proofreading has been made to minimize errors. Please call for corrections. Madhavi Raza PA-C [address] [facility] [address], [place], [address], [facility] 06/08/2024 16:02:16 OBGyn Episode No OBEpisode recorded.
--- OUTSIDE RECORDS SUMMARY | 2025-02-11 14:07 | XMS_ITS | Clinical Summary ---
Author Organization [facility] Address [address] [place] [address] Phone Care Team Providers Care Can Capper Name Role Phone Harsha Escalante MD Primary Care Provider [phone] Allergies Active Allergy Reactions Criticality Noted Date [...] of heel, left 10/08/2024 Diabetic foot infection ([facility] V24, [facility] V2 8) 10/07/2024 Surgical [...] DX:Carpal tunnel syndrome on both sides Stroke ([facility]/HCC V24, [facility] V28) DX:Stroke (HCC) Spinal stenosis DX:Spinal stenos is Shingles DX:Shingles Sepsis due to Zarina (CMS/H CC V24, CMS/HCC V28) DX:Sepsis due to Zarina (HC C) Diabetes mellitus ([facility]/HCC V 24, [facility] V28) DX:Diabetes mellitus (HCC) Seizure disorder (CMS/HCC V24, [facility] V28) DX:Seizure disorder (HCC) [...] series) 2019 Colorectal Cancer Screening: Colonoscopy 06/27/2022 Hepatitis C Screening 06/27/2022 Medicare Annual Wellness Visit 06/27/2022 Osteoporosis Screening (Bone Density Screening) 06/27/2022 Social Influencers of Health Screening 06/27/2022 Diabetes: Annual Urine Albumin-Creatinine Ratio (uACR) 07/07/2022 03/17/2020, 08/24/2018, 09/22/2017 COVID-19 Vaccine () 03/25/2024 09/15/2021, 11/19/2020, 10/25/2020 Breast Cancer Screening 05/11/2024 05/11/2022 Depression Screening 07/25/2024 Influenza Vaccine (#1) 2025 , 07/28/2023, 04/27/2022, [...] Final Result [facility] [address] [place] [address], [place] [phone] * (ABNORMAL) Basic metabolic panel (10/09/2024 6:43 AM EDT) Sodium 135 133 - 145 mmol/L LAB CHEMISTRY METHOD 10/09/2024 7:48 AM [facility] Potassium 4.3 3.5 - 5.5 mmol/L LAB CHEMISTRY METHOD 10/09/2024 7:48 AM [facility] Chloride 104 96 - 110 mmol/L LAB CHEMISTRY METHOD 10/09/2024 7:48 AM [facility] CO2 27 21 - 32 mmol/L LAB CHEMISTRY METHOD 10/09/2024 7:48 AM [facility] Anion Gap 4 3 - 11 LAB CHEMISTRY METHOD 10/09/2024 7:48 AM [facility] Glucose 260(H) 70 - 100 mg/dL LAB CHEMISTRY METHOD 10/09/2024 7:48 AM [facility] BUN 17 5 - 25 mg/dL LAB CHEMISTRY METHOD 10/09/2024 7:48 AM [facility] Creatinine 0.89 0.50 - 1.10 mg/dL LAB CHEMISTRY METHOD 10/09/2024 7:48 AM [facility] eGFR 72 >=60 mL/min/1. 73m2 LAB CHEMISTRY METHOD 10/09/2024 7:48 AM [facility] Comment:Calculation based on the Chronic Kidney Disease Epidemiology Collaboration (CKD-EPI) equation refit without adjustment for race. BUN/Creatinine Ratio 19.1 LAB CHEMISTRY METHOD 10/09/2024 7:48 AM [facility] Calcium 9.1 8.5 - 10.5 mg/dL LAB CHEMISTRY METHOD 10/09/2024 7:48 AM [facility] Blood Venous blood specimen / Unknown Venipuncture / Unknown 10/09/2024 6:43 AM EDT 10/09/2024 7:06 AM EDT [facility] [facility] BLOOD ORDERABLES Final Result Performing Organization Address City/[facility]/ZIP Co de Phone Number [facility] [address] [place] [address], [place] [phone] * (ABNORMAL) Hemoglobin A1c (10/07/2024 12:26 PM [...] al Result [facility] [address] [place] [address], [place] [phone] from Last 3 Months or Most Recently Relevant to Health Maintenance Insurance MEDICAID - [place] [employer] MEDICARE Advance Directives Documents on File Type Date Recorded Patient Ware Server Expl [facility] Care Decision (hx) 05/13/2021 AD GONZALEZ [...] currently active code status orders. Care Teams Can Capper Relationship Specialty Start Date End Date Harsha Escalante MD [address] [facility] [address] [place], [place] PCP - General Neurology 03/17/20
--- OUTSIDE RECORDS SUMMARY | 2025-02-11 14:08 | XMS_ITS | Continuity of Care Document ---
Author Organization [facility] [address] [address] Phone [phone] Problems Active Problems Provider Date Insulin treated [...] ing Provider Date Freestyle Beny 3/Sensor/Glucose Monitoring Ucguuz0Noozfb Misc use as one sensor every 14 days (DX: E11.9) 6units E11.9 Rosanna Diaz M.D. 02/13/2024 Freestyle Beny 3/[place]/Glucose Monitoring Hoolhu0Gzdueb Device use as directed with sensors Dx: E11.9 1units E11.9 Rosanna Diaz M.D. 02/13/2024 Freestyle Beny 2/Sensor/Flash Glucose Monitoring Idnhmq1Smpyqh Misc use as one sensor every 14 days (DX: E11.9) 6units E11.9 Rosanna Diaz M.D. 02/07/2024 Qmgwsyoqo55gs Tablets take 1 tab by mouth every day 30tabs Rosanna Diaz M.D. 08/02/2022 Contour Next Blood Glucose TestStrips Use To Test Finger Stick Blood Sugar 3 (Three) Times A Day 100units Tomas Brenner M.D. 05/13/2022 Humulin R U-500 Kewdtkj862Gkau/ML Solution Pen-Inject Inject 60 Units Under The Skin Before Meals 3 (Three) Times A Day 12units Tomas Brenner M.D. 02/05/2022 Atorvastatin Aepzcyq20wa Tablets Unknown 00 Latanoprost0.005% Solution Aldo Patton Prather Choice Comfort Ez Pen Rison [id number] X 4 mm Misc Unknown Prather Choice Comfort Ez Pen Rison [id number] X 4 mm Misc Use as Needed as Directed Unknown Duloxetine YVE45wu Caps DR Roly Take 2 caps once daily Unknown Phenytoin Sodium Yipmmgus393ry Capsules Take 1 hs Unknown Mdhgsqlaxj35bo Tablets Unknown Metoprolol Succinate ES025we Tablets ER 24HR Take 1 tab daily Unknown Oxycodone HCL5mg Tablets Take 1 Tablet By Mouth Every 8 Hours For Severe Pain Unknown Rxxpcwifmh085gf Capsules Take 3 capsules 3 times a day Unknown Oxybutynin Chloride ER5mg Tablets ER 24HR Unknown Albuterol Sulfate IME562(90Base) mcg/Act Aerosol Inhale 2 puffs into the lungs every 6 (six) hours as needed for wheezing. Unknown Ftpwghtvf711mi Tablets Take 1 tablet every 8 hours Unknown Vital Signs Date Vital Result Comment 10/16/2024 [...] Juan 27 mg/dL 5-40 LDL Chol Calc ([facility]) 110 mg/dL High 0-99 LDL Calc Comment: [...] Inhouse Glucose Fingerstick 227 Gad65 Autoantibodies 11/11/2022 [facility] Gad65 Autoantibodies <pending> C-Peptide 11/11/2022 [facility] C-Peptide <pending> Glucose 11/11/2022 [facility] Glucose <pending> Hemoglobin A1c 11/09/2022 Inhouse Hemoglobin A1c 12.0% Glucose Fingerstick 11/09/2022 Inhouse Glucose Fingerstick 401 1 Normal: 0 - 29 Moderately increased: 30 - 300 Severely increased: >300 2 C-Peptide reference interval is for fasting patients. 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
== END 2025-02-11 13:20 | disposition home or self-care (01) ==
LOC: HO.HVNA 13:19
PROVIDERS: Visit Provider Internal Medicine Infectious Disease
DX: Z13.89 Encounter for screening for other disorder (principal)
CPT/HCPCS: 36415; 80053; 85025